=== PATIENT | male | born 1955 | race Caucasian/White ===

== ENCOUNTER 2021-04-24 13:14 | Emergency (ER) | payer OTHER, SELFPAY ==
[2021-04-24 14:21] VITALS: BP 147/76; PULSE 75; RESP 19; TEMP 36.7; O2SAT 94; BMI 26.4
--- NOTE | 2021-04-24 16:33 | CTR_ITS ---
PROCEDURE INFORMATION: Exam: CT Abdomen And Pelvis With Contrast Exam date and time: 04/24/2021 4:33 PM Age: 65 years old Clinical indication: Nausea and vomiting and other: Diarrhea; Abdominal pain; Generalized; Additional info: Llq abd pain TECHNIQUE: Imaging protocol: Computed tomography of the abdomen and pelvis with contrast. Radiation optimization: All CT scans at this facility use at least one of these dose optimization techniques: automated exposure control; mA and/or kV adjustment per patient size (includes targeted exams where dose is matched to clinical indication); or iterative reconstruction. Contrast material: VISI 320; Contrast volume: 95 ml; Contrast route: INTRAVENOUS (IV); COMPARISON: CR (CHEST, ) 04/24/2021 4:49 PM RADIATION DOSE METRICS: Total DLP (mGy-cm): 1621.14 FINDINGS: Lungs: There is calcified granuloma in the left lower lobe. There is some scarring and dependent atelectasis in the lingula and in the posterior lower lobes. Liver: There is no focal abnormality within the liver. Gallbladder and bile ducts: The gallbladder is normal. Pancreas: The pancreas is normal. Spleen: The spleen demonstrates punctate calcifications, consistent with remote granulomatous organism exposure. Adrenal glands: The adrenal glands are normal. Kidneys and ureters: The kidneys are normal. There is no evidence of hydronephrosis. There is no evidence of renal or ureteral calcifications. Stomach and bowel: There is no evidence of colitis/diverticulitis. There is no evidence of intestinal obstruction. There is no evidence of intestinal obstruction. There is moderate edema and thickening of the distal gastric antrum which may represent some nonspecific gastritis. There is mild fluid distention and thickening of proximal small bowel loops which may represent some nonspecific enteritis. Appendix: Not identified Intraperitoneal space: There is no evidence of free intraperitoneal fluid. Vasculature: The aorta demonstrates moderate atherosclerotic calcification. There is no evidence of an abdominal aortic aneurysm. There is moderate atherosclerotic narrowing of the mid abdominal aorta. Origin of the right common iliac artery is occluded. Right external iliac artery is patent and may be supplied via collaterals from the internal iliac. Lymph nodes: There is no evidence of lymphadenopathy. Urinary bladder: Unremarkable as visualized. Reproductive: Unremarkable as visualized. Bones/joints: There is old ununited fracture of left 10th rib; The lumbar spine demonstrates moderate degenerative changes at multiple levels. There is moderate lumbar scoliosis concave to the left. Soft tissues: Unremarkable. CT/CT abdomen pelvis w con* [id number] IMPRESSION: 1. Nonspecific gastroenteritis. 2. No evidence of diverticulitis. 3. 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 Radiation Dose CTDIVOL = (mGy): DLP = 1621.14 (mGy-cm)
--- NOTE | 2021-04-24 16:33 | XRR_ITS ---
PROCEDURE INFORMATION: Exam: XR Chest Exam date and time: 04/24/2021 4:33 PM Age: 65 years old Clinical indication: Shortness of breath; Sternal or substernal pain; Additional info: Reduced breath sounds TECHNIQUE: Imaging protocol: XR of the chest. Views: 1 view. COMPARISON: No relevant prior studies available. FINDINGS: Lungs: Visualized portions of the lungs are clear. Pleural spaces: Unremarkable. No pleural effusion. No pneumothorax. Heart/Mediastinum: Heart is within normal limits of size. Bones/joints: There are old healed fractures of the posterolateral left 5th and 8th ribs. There are degenerative changes in the thoracic spine. XR/XR chest 1V portable [id number] IMPRESSION: No acute infiltrate.
--- NOTE | 2021-04-24 16:37 | ECG_ITS ---
[facility] Test Date: 2021-04-24 Pat Name: Vikram Lawrence Department: Room: Gender: Male Counter Help: : 1955 Requested By: Pete Mast Order Number: [id number] Reina MD: Kiko Watkins M.D. Measurements Intervals [place] Rate: 81 P: 58 NV: 150 QRS: -2 QRSD: 85 T: 73 QT: 402 QTc: 467 Interpretive Statements SINUS RHYTHM No previous ECG available for comparison Electronically Signed On 04-24-2021 20:06:13 CDT by Kiko Watkins M.D. [id number]
[2021-04-24 16:49] LABS: Basophils # 0.1 10^3/uL (0.0-0.1); Basophils % 0.4 %; Eosinophils # 0.1 10^3/uL (0.0-0.8); Eosinophils % 0.7 %; Hematocrit 54.2 % (42.0-52.0); Hemoglobin 17.7 g/dL (11.7-16.6); Lymphocytes # 2.6 10^3/uL (0.8-4.8); Lymphocytes % 15.7 %; Mean Corpuscular HGB Conc 32.7 g/dL (30.0-36.0); Mean Corpuscular Hemoglobin 27.4 pg (28.0-34.0); Mean Corpuscular Volume 83.9 fL (80-94); Mean Platelet Volume 8.7 fL (7.4-10.4); Monocytes # 1.1 10^3/uL (0.2-0.9); Monocytes % 6.9 %; Neutrophils # 12.36 10^3/uL (1.8-7.7); Neutrophils % 75.9 %; Nucleated Red Blood Cells % 0 %; Platelet Count 515 10^3/cmm (130-400); Red Blood Count 6.46 10^6/uL (4.1-5.3); Red Cell Distribution Width 14.8 % (12.1-15.1); White Blood Count 16.3 10^3/uL (4.0-10.0)
[2021-04-24] MEDS: sodium chloride 0.9% 1,000 ML 999 ML IV (16:51)
[2021-04-24] MEDS: ondansetron 2 mg/ML SDV 2 mL 4 MG IVP (16:51)
[2021-04-24 17:08] VITALS: BP 153/84; PULSE 74; RESP 16; O2SAT 96
[2021-04-24 17:38] LABS: Lactic Sepsis W/Reflex 1.5 mmol/L (0.5-2.2)
[2021-04-24 18:05] VITALS: BP 157/75; PULSE 79; RESP 18; O2SAT 98
[2021-04-24 18:21] LABS: Alanine Aminotransferase 7 U/L (0-41); Albumin Level 4.3 g/dL (3.5-5.2); Alkaline Phosphatase 101 IU/L (40-130); Blood Urea Nitrogen 34 mg/dL (8-23); Calcium 9.5 mg/dL (8.5-10.5); Carbon Dioxide 19 mmol/L (22-29); Chloride 96 mmol/L (98-107); Globulin 3.3 g/dL (1.3-4.6); Glomerular Filtration Rate 85.2 mL/min (90-130); Glucose 108 mg/dL (65-115); Lipase 28 U/L (13-60); Osmolality Calculated 282 mOsm/kg (285-295); Sodium 132 mmol/L (136-145); Total Bilirubin 0.4 mg/dL (0.15-1.2); Total Protein 7.6 g/dL (6.6-8.7)
[2021-04-24 18:31] LABS: Aspartate Amino Transferase 11 U/L (0-40)
[2021-04-24] MEDS: iodixanol 320 mg/mL 100mL Btl IV (19:18)
[2021-04-24 19:43] VITALS: BP 152/71; PULSE 70; RESP 18; O2SAT 97
[2021-04-24 20:07] LABS: Add Urine Microscopic? NO; Charge for UA Resulting for Rev
[2021-04-24 20:10] LABS: Bilirubin Urine Neg (Negative); Blood Urine Neg (Negative); Glucose Urine UA Norm (Normal); Ketones Urine Negative (Negative); Leukocyte Esterase Urine Negative (Negative); Nitrate Urine Negative (Negative); Protein Urine Neg (Negative); Urine Appearance Clear (CLEAR); Urine Color Yellow (Yellow); Urobilinogen Urine 1 mg/dL (Negative); pH Urine 6.5 (5-7)
[2021-04-24 20:42] VITALS: BP 137/69; PULSE 71; RESP 16; O2SAT 95
--- NOTE | 2021-04-24 22:35 | W.ED.NAVMDI ---
HPI - Nausea/Vomiting/Diarrhea General: Chief complaint: Nausea/Vomiting/Diarrhea Stated complaint: WEAK, STOMACH PAINS 1 WK Time Seen by Provider: 04/24/21 16:32 History of Present Illness: HPI Narrative: The patient is a 65-year-old male who comes in he says he has not eaten or drink much for days. Heart rate 75 on arrival. Also complains of diffuse colicky abdominal pain but right now it is in the left lower quadrant. He has had a history of an appendix removed years ago. Denies eating any bad foods or fevers. He has also not had any vomiting in the ER. No recent antibiotic usage MD elicited complaint: nausea, vomiting, diarrhea and abdominal pain Onset (ago): day(s) (7) Description of diarrhea: watery Associated nausea: Yes Associated abdominal pain: Yes Location of pain: LLQ Radiation: does not radiate Pain consistency: intermittent Severity: mild Quality: cramping Relieving factors: none Associated symtoms: Reports nausea; Denies anxiety, change in vision, chest pain, dizziness, fatigue, headache(s) or palpitations Review of Systems General: Reports: 10 or more systems reviewed and unremarkable except in HPI and below Const: Denies: fatigue Eyes: Denies: change in vision, blurry vision or eye redness ENMT: Denies: throat pain, swelling of lips/tongue, ear or mastoid pain or nasal congestion Card: Denies: chest pain, palpitations, irregular heart rhythm, edema, dyspnea on exertion or orthopnea Resp: Denies: dyspnea, productive cough or non-productive cough GI: Reports: abdominal pain, nausea, vomiting and diarrhea : Denies: flank pain, urinary frequency or urinary urgency Musc: Denies: neck pain, back pain, extremity pain, joint pain, joint redness, limited range of motion or muscle weakness Skin/Breast: Denies: rash, pruritus, erythema, skin pain or skin tenderness Neuro: Denies: headache(s), numbness in extremities, weakness in extremities, sensory changes, difficulty walking, dizziness, confusion or Slurred speech present Psych: Denies: anxiety or depression Endo: Denies: polyuria All/Imm: Denies: urticaria, throat swelling or tongue swelling Physical Exam Const: COMMON NORMALS: no acute distress, average body habitus, patient oriented x3, no limitations, healthy appearing, alert and well nourished GENERAL APPEARANCE: cooperative, comfortable, well kempt and well developed ORIENTATION/CONSCIOUSNESS: Yes awake, Yes oriented to person, Yes oriented to place and Yes oriented to time HENMT: COMMON NORMALS: normocephalic, external ears normal and Normal external nose present HEAD & SCALP: normal to inspection and normocephalic NOSE: Normal external nose present EXTERNAL EAR: Yes external ears normal MOUTH: Normal oral and palatal mucosa present THROAT: posterior oropharynx normal Eye: COMMON NORMALS: Equal, round and reactive pupils present and EOMs intact bilaterally GENERAL EYE: appearance normal, both eyes and all related structures PUPIL: Yes Equal, round and reactive pupils present Neck/C-Spine: COMMON NORMALS: full ROM, no lymphadenopathy, no meningeal signs and no JVD GENERAL: Yes normal visual inspection Lymph: LYMPHATIC: no lymphadenopathy noted Chest: COMMONS NORMALS: normal inspection of the chest and normal palpation of entire chest wall Resp: COMMON NORMALS: normal respiratory effort, No retractions, No use of accessory muscles, clear to auscultation bilaterally and percussion normal EFFORT & INSPECTION: Yes able to speak in complete sentences AUSCULTATION: clear to auscultation bilaterally PERCUSSION: percussion normal Cardio: COMMON NORMALS: no JVD, regular rate, regular rhythm, S1 normal heart sound present, S2 normal heart sound present and Peripheral pulses 2+ throughout RATE: regular rate RHYTHM: regular rhythm HEART SOUNDS: S1 normal heart sound present and S2 normal heart sound present PERIPHERAL PULSES: Peripheral pulses 2+ throughout GI: COMMON NORMALS: Normal to inspection, nondistended, normoactive bowel sounds present, Soft to palpation, non-tender and no masses INSPECTION: Yes normal to inspection PALPATION: Yes Soft to palpation : COMMON NORMALS: Yes no CVA tenderness BLADDER/KIDNEY EXAM: Yes no CVA tenderness Back/Pelvis: COMMON NORMALS: no CVA tenderness, thoracic and lumbar spine normal to inspection, no thoracic nor lumbar tenderness and thoraco-lumbar ROM normal Extremity: COMMON NORMALS: normal to inspection, full ROM, capillary refill normal, no joint enlargement and no pedal edema GENERAL: Yes normal exam except as noted Neuro: COMMON NORMALS: patient oriented x3, CN's II-XII intact bilaterally, moves all extremities, no focal motor deficits, no sensory deficits noted and gait normal SENSORIUM/ORIENTATION: Yes alert, Yes oriented to person, Yes oriented to place and Yes oriented to time MENINGEAL SIGNS: Yes no meningeal signs Psych: COMMON NORMALS: mental status grossly normal, Normal thought process present, cooperative, normal affect and speech normal APPEARANCE: Yes well kempt ATTITUDE: Yes calm SPEECH: Yes normal speech THOUGHT PROCESS: Normal thought process present Skin: COMMON NORMALS: no rashes or lesions noted GENERAL SKIN EXAM: no rashes or lesions noted Course Vital Signs: Vital signs: Vital Signs Temperature 98.1 F 04/24/21 14:21 Pulse Rate 71 04/24/21 20:42 Respiratory Rate 16 04/24/21 20:42 Blood Pressure 137/69 04/24/21 20:42 Pulse Oximetry 95 04/24/21 20:42 MDM - Nausea/Vomiting/Diarrhea MDM Narrative: Medical decision making narrative: The patient came to the ER mildly dehydrated and was given a liter of fluids and Zofran for nausea which did help. He did not vomit in the ER. CT abdomen pelvis was negative for any acute pathology in the belly however it did incidentally show a clogged right common iliac artery. I placed a case management referral to help him get an appointment with a vascular surgeon to deal with this. He is asymptomatic of this. Fluids and Zofran did help his symptoms moderately and the CT was negative for any acute pathology. He was discharged home in stable condition and recommended he follow-up with his primary care physician Thursday for a checkup. ER with worsening symptoms at any time. White count 16 and slightly hemoconcentrated as well. He felt moderately improved after a liter of fluids and was tolerating p.o. Lab Data: Labs: Lab Results 04/24/21 04/24/21 04/24/21 Range/Units 16:40 16:40 16:40 WBC 16.3 H (4.0-10.0) 10^3/ uL RBC 6.46 H (4.1-5.3) 10^6/u L Hgb 17.7 H (11.7-16.6) g/dL Hct 54.2 H (42.0-52.0) % MCV 83.9 (80-94) fL MCH 27.4 L (28.0-34.0) pg MCHC 32.7 (30.0-36.0) g/dL RDW 14.8 (12.1-15.1) % Plt Count 515 H (130-400) 10^3/c mm MPV 8.7 (7.4-10.4) fL Neut % (Auto) 75.9 % Lymph % (Auto) 15.7 % [place] % (Auto) 6.9 % Eos % (Auto) 0.7 % Baso % (Auto) 0.4 % Neut # (Auto) 12.36 H (1.8-7.7) 10^3/u L Lymph # (Auto) 2.6 (0.8-4.8) 10^3/u L [place] # (Auto) 1.1 H (0.2-0.9) 10^3/u L Eos # (Auto) 0.1 (0.0-0.8) 10^3/u L Baso # (Auto) 0.1 (0.0-0.1) 10^3/u L Nucleated RBC % (a uto) 0 % Nucleated RBCs # 0.0 /100WBC Sodium 132 L (136-145) mmol/L Potassium 4.0 (3.5-5.1) mmol/L Chloride 96 L (98-107) mmol/L Carbon Dioxide 19 L (22-29) mmol/L Anion Gap 21.0 H (5-19) BUN 34 H (8-23) mg/dL Creatinine 0.9 (0.7-1.2) mg/dL GFR Calculation 85.2 L (90-130) mL/min Glucose 108 (65-115) mg/dL Calculated Osmolal ity 282 L (285-295) mOsm/k g Lactic Acid 1.5 (0.5-2.2) mmol/L Calcium 9.5 (8.5-10.5) mg/dL Total Bilirubin 0.4 (0.15-1.2) mg/dL AST 11 (0-40) U/L ALT 7 (0-41) U/L Alkaline Phosphata se 101 (40-130) IU/L Total Protein 7.6 (6.6-8.7) g/dL Albumin 4.3 (3.5-5.2) g/dL Globulin 3.3 (1.3-4.6) g/dL Lipase 28 (13-60) U/L Urine Color (Yellow) Urine Appearance (CLEAR) Urine pH (5-7) Ur Specific Gravit y (1.005-1.030) Urine Protein (Negative) Urine Glucose (UA) (Normal) Urine Ketones (Negative) Urine Blood (Negative) Urine Nitrate (Negative) Urine Bilirubin (Negative) Urine Urobilinogen (Negative) mg/dL Ur Leukocyte Kaylan ase (Negative) 04/24/21 Range/Units 19:50 WBC (4.0-10.0) 10^3/ uL RBC (4.1-5.3) 10^6/u L Hgb (11.7-16.6) g/dL Hct (42.0-52.0) % MCV (80-94) fL MCH (28.0-34.0) pg MCHC (30.0-36.0) g/dL RDW (12.1-15.1) % Plt Count (130-400) 10^3/c mm MPV (7.4-10.4) fL Neut % (Auto) % Lymph % (Auto) % [place] % (Auto) % Eos % (Auto) % Baso % (Auto) % Neut # (Auto) (1.8-7.7) 10^3/u L Lymph # (Auto) (0.8-4.8) 10^3/u L [place] # (Auto) (0.2-0.9) 10^3/u L Eos # (Auto) (0.0-0.8) 10^3/u L Baso # (Auto) (0.0-0.1) 10^3/u L Nucleated RBC % (a uto) % Nucleated RBCs # /100WBC Sodium (136-145) mmol/L Potassium (3.5-5.1) mmol/L Chloride (98-107) mmol/L Carbon Dioxide (22-29) mmol/L Anion Gap (5-19) BUN (8-23) mg/dL Creatinine (0.7-1.2) mg/dL GFR Calculation (90-130) mL/min Glucose (65-115) mg/dL Calculated Osmolal ity (285-295) mOsm/k g Lactic Acid (0.5-2.2) mmol/L Calcium (8.5-10.5) mg/dL Total Bilirubin (0.15-1.2) mg/dL AST (0-40) U/L ALT (0-41) U/L Alkaline Phosphata se (40-130) IU/L Total Protein (6.6-8.7) g/dL Albumin (3.5-5.2) g/dL Globulin (1.3-4.6) g/dL Lipase (13-60) U/L Urine Color Yellow (Yellow) Urine Appearance Clear (CLEAR) Urine pH 6.5 (5-7) Ur Specific Gravit y 1.010 (1.005-1.030) Urine Protein Neg (Negative) Urine Glucose (UA) Norm (Normal) Urine Ketones Negative (Negative) Urine Blood Neg (Negative) Urine Nitrate Negative (Negative) Urine Bilirubin Neg (Negative) Urine Urobilinogen 1 H (Negative) mg/dL Ur Leukocyte Kaylan ase Negative (Negative) Discharge Plan Discharge Patient Disposition: Home Clinical Impression: Gastroenteritis, Iliac artery occlusion, right Condition: Stable Prescriptions: New ondansetron 4 mg tablet,disintegrating 4 mg PO Q8H 4 Days Qty: 12 RF: 0 Discharge Orders: Discharge ED (Routine); Ordered 04/24/21 Ordered By: Pete Mast Referrals: Rodriguez Olmos [Primary Care Provider] - Discharge Diet: Advance as tolerated Discharge Activity: Resume usual activity Patient Instructions: Gastroenteritis (ED), Opioid Safety Activity Restrictions/Additional Instructions: 1. You are suffering from gastroenteritis please continue to drink lots of fluids and take the Zofran which should dissolve in your mouth to help you drink fluids. Return to the ER at anytime with worsening symptoms otherwise follow-up with your primary care physician in a few days to monitor improvement of your symptoms. 2. Your right common iliac your right common iliac artery is this was found incidentally and is no cause for immediate concern but must be followed up. I have placed a case management referral to help you get in with a vascular surgeon to discuss further. Return to the ER with any worsening symptoms in that leg such as weakness, cold extremity, bluish color, numbness or any other odd symptoms you may have. Otherwise follow-up with the vascular surgeon. They should be calling you soon to help you set up an appointment. 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
[2021-04-24 22:41] VITALS: BP 143/77; PULSE 77; RESP 18; O2SAT 99
--- NOTE | 2021-04-25 09:02 | PC.SOCIAL ---
Called Jennifer at [facility] today at 0900 regarding referral to vascular surgeon for clotted right common iliac artery. She retrieved information and will call patient with appointment.
--- NOTE | 2021-05-07 07:39 | DCPLANNER ---
Patient has a follow up appointment scheduled for Monday, June 07, 2021 at 9:[address] Jade at [facility]. Clinic will call patient with appointment information.
--- NOTE | 2021-06-12 07:45 | DCPLANNER ---
Patient had a follow up appointment scheduled for 06.07.21 with [facility] - patient did not attend appointment.
== END 2021-04-24 22:42 | disposition home or self-care (01) ==
PROVIDERS: Registered Nurse; Emergency Provider Family Medicine; PCP Internal Medicine
DX: K52.9 Noninfective gastroenteritis and colitis, unspecified (principal); I74.5 Embolism and thrombosis of iliac artery
CPT/HCPCS: 71045; 74177; 80053; 81003; 83605; 83690; 85025; 93005; 96361; 96374; 99284; J2405; J7030; Q9967

== ENCOUNTER 2022-12-09 12:57 | Emergency (ER) | payer OTHER, SELFPAY ==
[2022-12-09] VITALS (16 sets, daily range): BP systolic 145–200; BP diastolic 80–109; PULSE 73–91; RESP 15–27; TEMP 36.3; O2SAT 93–98; BMI 26.4
--- NOTE | 2022-12-09 13:52 | ED_ITS ---
Documented by User: [email or web address] Carl 12/10/22 07:09 HPI - General Adult General: Chief complaint: Extremity Problem,Nontraumatic Stated complaint: pain in legs Time Seen by Provider: 12/09/22 13:37 Source: patient Mode of arrival: ambulatory Limitations: no limitations History of Present Illness: Patient is a 67-year-old male who presents to ED today with 2 separate complaints. First of all he complains of diffuse mid abdominal pains over the past several weeks. He states this pain has been constant and has not seemed to let up. He rates it at a 6/10. He has not found any alleviating or worsening factors to his discomfort. He states it feels like I am being punched in my gut repetitively . Patient is not having any nausea, vomiting, or changes in bowel movements. He has no urinary complaints. He denies heavy alcohol or NSAID use. Pain does not seem to be affected by eating. Patient also has some complaints in regards to his bilateral lower extremities. Patient states they have been cool to the touch with some pallor for over a year now . Patient is an every day smoker. He states his legs sometimes feel numb . When asked if patient is a diabetic he responds yeah a little bit . He states he became concerned when he noticed a blood blister to his right great toe. Onset (ago): unknown (differing complaints with differing chronicities) Location: abdomen and lower extremity Relieving factors: none Exacerbating factors: none Associated symptoms: Deny chest pain, dyspnea, headache(s), malaise, nausea, palpitations, syncope or vomiting Treatments prior to arrival: none Review of Systems Const: Denies: fever(s), chills, body aches, fatigue or malaise Card: Denies: chest pain, palpitations, irregular heart rhythm, lightheadedness, syncope or dyspnea on exertion Resp: Denies: dyspnea, productive cough or pain on inspiration GI: Reports: abdominal pain; Denies: nausea, vomiting, heartburn, diarrhea or change in bowel habits Musc: Reports: extremity pain; Denies: neck pain, back pain, extremity swelling, joint pain or joint swelling Skin/Breast: Reports: other (blister to R great toe) Neuro: Reports: numbness in extremities; Denies: headache(s), weakness in extremities or sensory changes Physical Exam Const: COMMON NORMALS: no acute distress, patient oriented x3, no limitations, alert and well nourished GENERAL APPEARANCE: cooperative ORIENTATION/CONSCIOUSNESS: Yes awake, Yes oriented to person, Yes oriented to place and Yes oriented to time HENMT: COMMON NORMALS: normocephalic and atraumatic HEAD & SCALP: normal to inspection, normocephalic and atraumatic Resp: COMMON NORMALS: normal respiratory effort and clear to auscultation bilaterally AUSCULTATION: clear to auscultation bilaterally Cardio: COMMON NORMALS: regular rate and regular rhythm RATE: regular rate RHYTHM: regular rhythm GI: COMMON NORMALS: Soft to palpation and no masses AUSCULTATION: Yes normoactive bowel sounds PALPATION: Yes Soft to palpation, Yes Tenderness to palpation present (GI) (across mid abdomen; abdomen seems somewhat distended), No Guarding due to palpation present (GI) and No Rigid due to palpation : COMMON NORMALS: Yes no CVA tenderness BLADDER/KIDNEY EXAM: Yes no CVA tenderness Back/Pelvis: COMMON NORMALS: no CVA tenderness Extremity: COMMON NORMALS: full ROM, no joint enlargement, no calf tenderness and no pedal edema NARRATIVE EXTREMITY EXAM: patient has bilaterally very cool distal lower extremities that do have some mild pallor present; he has palpable and doppler DP/PT pulses bilaterally however; patient states feet have been cool for about a year now; he has the presence of a blood blister to the distal lateral aspect of R great toe that he is concerned with GENERAL: Yes normal exam except as noted Neuro: BRYON COMA SCALE: document GCS findings Bryon coma scale eye opening: Spontaneous [place] coma scale verbal response: Orientated [place] coma scale motor response: Obey commands Bryon coma scale total score: 15 COMMON NORMALS: patient oriented x3, moves all extremities, no focal motor deficits, no sensory deficits noted and gait normal SENSORIUM/ORIENTATION: Yes alert, Yes oriented to person, Yes oriented to place and Yes oriented to time Skin: NARRATIVE SKIN EXAM: see above for pertinent skin findings Course Vital Signs: Vital signs: Vital Signs Temperature 97.3 F L 12/09/22 13:00 Pulse Rate 78 12/09/22 19:25 Respiratory Rate 18 12/09/22 19:25 Blood Pressure 156/84 12/09/22 19:25 Pulse Oximetry 94 12/09/22 19:25 Oxygen Delivery Wy thod 12/09/22 18:41 MDM - General Adult Medical Decision Making Care was transferred to [facility], [facility] pending results of CT abdomen/pelvis ES Lab Data 12/09/22 14:35 12/09/22 14:35 Radiology Impressions Abdomen/Pelvis CT 12/09/22 13:52 IMPRESSION: 1. New infrarenal abdominal aortic aneurysm measuring 3 cm with findings suspicious for rupture of the infrarenal abdominal aorta. New crescentic hyperdensity surrounds the infrarenal abdominal aorta with disruption of the lumen in the left inferolateral aspect. Recommend emergent vascular surgery consultation. This can be further evaluated with either catheter angiogram or CT a of the abdomen aorta protocol as warranted clinically. 2. 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 THIS REPORT CONTAINS FINDINGS THAT MAY BE CRITICAL TO PATIENT CARE. The findings were verbally communicated via telephone conference with [facility] CERTIFIED INDUSTRIAL HYGIENIST at 5:11 PM PLANNING DIRECTOR on 12/09/2022. The findings were acknowledged and understood. Laboratory Results WBC 12.3 10^3/uL (4.0-10.0) H 12/09/22 14:35 RBC 4.96 10^6/uL (4.1-5.3) 12/09/22 14:35 Hgb 13.5 g/dL (11.7-16.6) 12/09/22 14:35 Hct 41.4 % (42.0-52.0) L 12/09/22 14:35 MCV 83.5 fl (80-94) 12/09/22 14:35 MCH 27.2 pg (28.0-34.0) L 12/09/22 14:35 MCHC 32.6 g/dL (30.0-36.0) 12/09/22 14:35 RDW 14.7 % (12.1-15.1) 12/09/22 14:35 Plt Count 630 10^3/cmm (130-400) H 12/09/22 14:35 MPV 8.4 fL (7.4-10.4) 12/09/22 14:35 Neut % (Auto) 73.4 % 12/09/22 14:35 Lymph % (Auto) 18.7 % 12/09/22 14:35 [place] % (Auto) 4.5 % 12/09/22 14:35 Eos % (Auto) 1.9 % 12/09/22 14:35 Baso % (Auto) 0.5 % 12/09/22 14:35 Neut # (Auto) 9.04 10^3/uL (1.8-7.7) H 12/09/22 14:35 Lymph # (Auto) 2.3 10^3/uL (0.8-4.8) 12/09/22 14:35 [place] # (Auto) 0.6 10^3/uL (0.2-0.9) 12/09/22 14:35 Eos # (Auto) 0.2 10^3/uL (0.0-0.8) 12/09/22 14:35 Baso # (Auto) 0.1 10^3/uL (0.0-0.1) 12/09/22 14:35 Nucleated RBC % (auto) 0 % 12/09/22 14:35 Nucleated RBCs # 0.0 /100WBC 12/09/22 14:35 PT 13.70 SECONDS (12.1-14.9) 12/09/22 14:35 INR 1.02 (0.8-1.2) 12/09/22 14:35 APTT 32.7 SECONDS (23.9-36.7) 12/09/22 14:35 Sodium 132 mmol/L (136-145) L 12/09/22 14:35 Potassium 3.5 mmol/L (3.5-5.1) 12/09/22 14:35 Chloride 94 mmol/L (98-107) L 12/09/22 14:35 Carbon Dioxide 28 mmol/L (22-29) 12/09/22 14:35 Anion Gap 13.5 (5-19) 12/09/22 14:35 BUN 9 mg/dL (8-23) 12/09/22 14:35 Creatinine 0.9 mg/dL (0.7-1.2) 12/09/22 14:35 GFR Calculation 84.7 mL/min (90-130) L 12/09/22 14:35 Glucose 124 mg/dL (65-115) H 12/09/22 14:35 Calculated Osmolality 274 mOsm/kg (285-295) L 12/09/22 14:35 Lactic Acid 2.2 mmol/L (0.5-2.2) 12/09/22 14:35 Lactic Acid (Sepsis) 1.1 mmol/L (0.5-2.2) 12/09/22 17:18 Calcium 9.8 mg/dL (8.5-10.5) 12/09/22 14:35 Total Bilirubin 0.2 mg/dL (0.15-1.2) 12/09/22 14:35 AST 7 U/L (0-40) 12/09/22 14:35 ALT 9 U/L (0-41) 12/09/22 14:35 Alkaline Phosphatase 102 U/L (40-130) 12/09/22 14:35 Total Protein 7.5 g/dL (6.6-8.7) 12/09/22 14:35 Albumin 3.7 g/dL (3.5-5.2) 12/09/22 14:35 Globulin 3.8 g/dL (1.3-4.6) 12/09/22 14:35 Lipase 64 U/L (13-60) H 12/09/22 14:35 Urine Color Yellow (Yellow) 12/09/22 15:20 Urine Appearance Clear (CLEAR) 12/09/22 15:20 Urine pH 6.5 (5-7) 12/09/22 15:20 Ur Specific [place] 1.015 (1.005-1.030) 12/09/22 15:20 Urine Protein Neg (Negative) 12/09/22 15:20 Urine Glucose (UA) Norm (Normal) 12/09/22 15:20 Urine Ketones Negative (Negative) 12/09/22 15:20 Urine Blood Neg (Negative) 12/09/22 15:20 Urine Nitrate Negative (Negative) 12/09/22 15:20 Urine Bilirubin Neg (Negative) 12/09/22 15:20 Urine Urobilinogen Neg mg/dL (Negative) 12/09/22 15:20 Ur Leukocyte Esterase Negative (Negative) 12/09/22 15:20 Blood Type A Positive 12/09/22 17:55 Rho(D) Type Positive 12/09/22 17:55 Antibody Screen Negative 12/09/22 17:55 Discharge Plan Discharge Patient Disposition: Transfer to ED Clinical Impression: Ruptured infrarenal abdominal aortic aneurysm (AAA) Condition: Stable Prescriptions: No Action No Known Home Medications Referrals: Rodriguez Olmos [Primary Care Provider] - Sign Out Sign Out Data: Patient Sign Out occurred on 12/09/22 at 17:19. Patient's care was discussed, and care was transferred from to Mejia Pardo MD. Coding Level of Care Code ED District Manager [employer] for Chg Fwd Documented by User: CARON Madison 12/09/22 18:20 HPI - General Adult General: Chief complaint: Extremity Problem,Nontraumatic Stated complaint: pain in legs Time Seen by Provider: 12/09/22 13:37 Physical Exam Neuro: BRYON COMA SCALE: document GCS findings [place] coma scale total score: 15 Course ED course: 1715- Dr. Hedrick, radiologist, called and advised CT showed concern for a ruptured infrarenal abdominal aorta. I discussed case with Dr. Pardo who agrees to accept care of pt. PT is transferred from vertical flow to ER bed. Vital Signs: Vital signs: Vital Signs Temperature 97.3 F L 12/09/22 13:00 Pulse Rate 78 12/09/22 19:25 Respiratory Rate 18 12/09/22 19:25 Blood Pressure 156/84 12/09/22 19:25 Pulse Oximetry 94 12/09/22 19:25 Oxygen Delivery Me thod 12/09/22 18:41 MDM - General Adult Lab Data 12/09/22 14:35 12/09/22 14:35 Radiology Impressions Abdomen/Pelvis CT 12/09/22 13:52 IMPRESSION: 1. New infrarenal abdominal aortic aneurysm measuring 3 cm with findings suspicious for rupture of the infrarenal abdominal aorta. New crescentic hyperdensity surrounds the infrarenal abdominal aorta with disruption of the lumen in the left inferolateral aspect. Recommend emergent vascular surgery consultation. This can be further evaluated with either catheter angiogram or CT a of the abdomen aorta protocol as warranted clinically. 2. 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 THIS REPORT CONTAINS FINDINGS THAT MAY BE CRITICAL TO PATIENT CARE. The findings were verbally communicated via telephone conference with Hyun Goodrich CERTIFIED INDUSTRIAL HYGIENIST at 5:11 PM PLANNING DIRECTOR on 12/09/2022. The findings were acknowledged and understood. Laboratory Results WBC 12.3 10^3/uL (4.0-10.0) H 12/09/22 14:35 RBC 4.96 10^6/uL (4.1-5.3) 12/09/22 14:35 Hgb 13.5 g/dL (11.7-16.6) 12/09/22 14:35 Hct 41.4 % (42.0-52.0) L 12/09/22 14:35 MCV 83.5 fl (80-94) 12/09/22 14:35 MCH 27.2 pg (28.0-34.0) L 12/09/22 14:35 MCHC 32.6 g/dL (30.0-36.0) 12/09/22 14:35 RDW 14.7 % (12.1-15.1) 12/09/22 14:35 Plt Count 630 10^3/cmm (130-400) H 12/09/22 14:35 MPV 8.4 fL (7.4-10.4) 12/09/22 14:35 Neut % (Auto) 73.4 % 12/09/22 14:35 Lymph % (Auto) 18.7 % 12/09/22 14:35 [place] % (Auto) 4.5 % 12/09/22 14:35 Eos % (Auto) 1.9 % 12/09/22 14:35 Baso % (Auto) 0.5 % 12/09/22 14:35 Neut # (Auto) 9.04 10^3/uL (1.8-7.7) H 12/09/22 14:35 Lymph # (Auto) 2.3 10^3/uL (0.8-4.8) 12/09/22 14:35 [place] # (Auto) 0.6 10^3/uL (0.2-0.9) 12/09/22 14:35 Eos # (Auto) 0.2 10^3/uL (0.0-0.8) 12/09/22 14:35 Baso # (Auto) 0.1 10^3/uL (0.0-0.1) 12/09/22 14:35 Nucleated RBC % (auto) 0 % 12/09/22 14:35 Nucleated RBCs # 0.0 /100WBC 12/09/22 14:35 PT 13.70 SECONDS (12.1-14.9) 12/09/22 14:35 INR 1.02 (0.8-1.2) 12/09/22 14:35 APTT 32.7 SECONDS (23.9-36.7) 12/09/22 14:35 Sodium 132 mmol/L (136-145) L 12/09/22 14:35 Potassium 3.5 mmol/L (3.5-5.1) 12/09/22 14:35 Chloride 94 mmol/L (98-107) L 12/09/22 14:35 Carbon Dioxide 28 mmol/L (22-29) 12/09/22 14:35 Anion Gap 13.5 (5-19) 12/09/22 14:35 BUN 9 mg/dL (8-23) 12/09/22 14:35 Creatinine 0.9 mg/dL (0.7-1.2) 12/09/22 14:35 GFR Calculation 84.7 mL/min (90-130) L 12/09/22 14:35 Glucose 124 mg/dL (65-115) H 12/09/22 14:35 Calculated Osmolality 274 mOsm/kg (285-295) L 12/09/22 14:35 Lactic Acid 2.2 mmol/L (0.5-2.2) 12/09/22 14:35 Lactic Acid (Sepsis) 1.1 mmol/L (0.5-2.2) 12/09/22 17:18 Calcium 9.8 mg/dL (8.5-10.5) 12/09/22 14:35 Total Bilirubin 0.2 mg/dL (0.15-1.2) 12/09/22 14:35 AST 7 U/L (0-40) 12/09/22 14:35 ALT 9 U/L (0-41) 12/09/22 14:35 Alkaline Phosphatase 102 U/L (40-130) 12/09/22 14:35 Total Protein 7.5 g/dL (6.6-8.7) 12/09/22 14:35 Albumin 3.7 g/dL (3.5-5.2) 12/09/22 14:35 Globulin 3.8 g/dL (1.3-4.6) 12/09/22 14:35 Lipase 64 U/L (13-60) H 12/09/22 14:35 Urine Color Yellow (Yellow) 12/09/22 15:20 Urine Appearance Clear (CLEAR) 12/09/22 15:20 Urine pH 6.5 (5-7) 12/09/22 15:20 Ur Specific [place] 1.015 (1.005-1.030) 12/09/22 15:20 Urine Protein Neg (Negative) 12/09/22 15:20 Urine Glucose (UA) Norm (Normal) 12/09/22 15:20 Urine Ketones Negative (Negative) 12/09/22 15:20 Urine Blood Neg (Negative) 12/09/22 15:20 Urine Nitrate Negative (Negative) 12/09/22 15:20 Urine Bilirubin Neg (Negative) 12/09/22 15:20 Urine Urobilinogen Neg mg/dL (Negative) 12/09/22 15:20 Ur Leukocyte Esterase Negative (Negative) 12/09/22 15:20 Blood Type A Positive 12/09/22 17:55 Rho(D) Type Positive 12/09/22 17:55 Antibody Screen Negative 12/09/22 17:55 Discharge Plan Discharge Patient Disposition: Transfer to ED Clinical Impression: Ruptured infrarenal abdominal aortic aneurysm (AAA) Condition: Stable Prescriptions: No Action No Known Home Medications Referrals: Rodriguez Oloms [Primary Care Provider] - Sign Out Sign Out Data: Patient Sign Out occurred on 12/09/22 at 17:19. Patient's care was discussed, and care was transferred from to Mejia Pardo MD. Coding Level of Care Code ED District Manager [employer] for Chg Fwd Documented by User: Mejia Pardo MD 12/22/22 01:04 HPI - General Adult General: Chief complaint: Extremity Problem,Nontraumatic Stated complaint: pain in legs Time Seen by Provider: 12/09/22 13:37 Physical Exam Neuro: BRYON COMA SCALE: document GCS findings [place] coma scale total score: 15 Course Vital Signs: Vital signs: Vital Signs Temperature 97.3 F L 12/09/22 13:00 Pulse Rate 78 12/09/22 19:25 Respiratory Rate 18 12/09/22 19:25 Blood Pressure 156/84 12/09/22 19:25 Pulse Oximetry 94 12/09/22 19:25 Oxygen Delivery Me thod 12/09/22 18:41 MDM - General Adult Medical Decision Making Care was transferred to WILNER Madison pending results of CT abdomen/pelvis ES Patient care discussed with WILNER Madison?C once she received CT results. I personally saw and evaluated the patient. I reperformed link portions of E/M. I agree with documentation. I reviewed her laboratory studies and imaging. Patient reports vascular surgery intervention. Esmolol and nicardipine ordered. We attempted transfer to multiple facilities however they would accept the patient as transfer even ER to ER due to bed availability and specialty availability. Patient started by Dr. Morris/Dr Ludwig at [facility] [[email or web address]] and transferred in guarded condition. The results of ED evaluation were discussed with the patient including plan for transfer due to requirement for level of care not available if discharged to prevent significant worsening/deterioration. Patient agreeable with plan. Lab Data 12/09/22 14:35 12/09/22 14:35 Radiology Impressions Abdomen/Pelvis CT 12/09/22 13:52 IMPRESSION: 1. New infrarenal abdominal aortic aneurysm measuring 3 cm with findings suspicious for rupture of the infrarenal abdominal aorta. New crescentic hyperdensity surrounds the infrarenal abdominal aorta with disruption of the lumen in the left inferolateral aspect. Recommend emergent vascular surgery consultation. This can be further evaluated with either catheter angiogram or CT a of the abdomen aorta protocol as warranted clinically. 2. 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 THIS REPORT CONTAINS FINDINGS THAT MAY BE CRITICAL TO PATIENT CARE. The findings were verbally communicated via telephone conference with Hyun Goodrich CERTIFIED INDUSTRIAL HYGIENIST at 5:11 PM PLANNING DIRECTOR on 12/09/2022. The findings were acknowledged and understood. Laboratory Results WBC 12.3 10^3/uL (4.0-10.0) H 12/09/22 14:35 RBC 4.96 10^6/uL (4.1-5.3) 12/09/22 14:35 Hgb 13.5 g/dL (11.7-16.6) 12/09/22 14:35 Hct 41.4 % (42.0-52.0) L 12/09/22 14:35 MCV 83.5 fl (80-94) 12/09/22 14:35 MCH 27.2 pg (28.0-34.0) L 12/09/22 14:35 MCHC 32.6 g/dL (30.0-36.0) 12/09/22 14:35 RDW 14.7 % (12.1-15.1) 12/09/22 14:35 Plt Count 630 10^3/cmm (130-400) H 12/09/22 14:35 MPV 8.4 fL (7.4-10.4) 12/09/22 14:35 Neut % (Auto) 73.4 % 12/09/22 14:35 Lymph % (Auto) 18.7 % 12/09/22 14:35 [place] % (Auto) 4.5 % 12/09/22 14:35 Eos % (Auto) 1.9 % 12/09/22 14:35 Baso % (Auto) 0.5 % 12/09/22 14:35 Neut # (Auto) 9.04 10^3/uL (1.8-7.7) H 12/09/22 14:35 Lymph # (Auto) 2.3 10^3/uL (0.8-4.8) 12/09/22 14:35 [place] # (Auto) 0.6 10^3/uL (0.2-0.9) 12/09/22 14:35 Eos # (Auto) 0.2 10^3/uL (0.0-0.8) 12/09/22 14:35 Baso # (Auto) 0.1 10^3/uL (0.0-0.1) 12/09/22 14:35 Nucleated RBC % (auto) 0 % 12/09/22 14:35 Nucleated RBCs # 0.0 /100WBC 12/09/22 14:35 PT 13.70 SECONDS (12.1-14.9) 12/09/22 14:35 INR 1.02 (0.8-1.2) 12/09/22 14:35 APTT 32.7 SECONDS (23.9-36.7) 12/09/22 14:35 Sodium 132 mmol/L (136-145) L 12/09/22 14:35 Potassium 3.5 mmol/L (3.5-5.1) 12/09/22 14:35 Chloride 94 mmol/L (98-107) L 12/09/22 14:35 Carbon Dioxide 28 mmol/L (22-29) 12/09/22 14:35 Anion Gap 13.5 (5-19) 12/09/22 14:35 BUN 9 mg/dL (8-23) 12/09/22 14:35 Creatinine 0.9 mg/dL (0.7-1.2) 12/09/22 14:35 GFR Calculation 84.7 mL/min (90-130) L 12/09/22 14:35 Glucose 124 mg/dL (65-115) H 12/09/22 14:35 Calculated Osmolality 274 mOsm/kg (285-295) L 12/09/22 14:35 Lactic Acid 2.2 mmol/L (0.5-2.2) 12/09/22 14:35 Lactic Acid (Sepsis) 1.1 mmol/L (0.5-2.2) 12/09/22 17:18 Calcium 9.8 mg/dL (8.5-10.5) 12/09/22 14:35 Total Bilirubin 0.2 mg/dL (0.15-1.2) 12/09/22 14:35 AST 7 U/L (0-40) 12/09/22 14:35 ALT 9 U/L (0-41) 12/09/22 14:35 Alkaline Phosphatase 102 U/L (40-130) 12/09/22 14:35 Total Protein 7.5 g/dL (6.6-8.7) 12/09/22 14:35 Albumin 3.7 g/dL (3.5-5.2) 12/09/22 14:35 Globulin 3.8 g/dL (1.3-4.6) 12/09/22 14:35 Lipase 64 U/L (13-60) H 12/09/22 14:35 Urine Color Yellow (Yellow) 12/09/22 15:20 Urine Appearance Clear (CLEAR) 12/09/22 15:20 Urine pH 6.5 (5-7) 12/09/22 15:20 Ur Specific [place] 1.015 (1.005-1.030) 12/09/22 15:20 Urine Protein Neg (Negative) 12/09/22 15:20 Urine Glucose (UA) Norm (Normal) 12/09/22 15:20 Urine Ketones Negative (Negative) 12/09/22 15:20 Urine Blood Neg (Negative) 12/09/22 15:20 Urine Nitrate Negative (Negative) 12/09/22 15:20 Urine Bilirubin Neg (Negative) 12/09/22 15:20 Urine Urobilinogen Neg mg/dL (Negative) 12/09/22 15:20 Ur Leukocyte Esterase Negative (Negative) 12/09/22 15:20 Blood Type A Positive 12/09/22 17:55 Rho(D) Type Positive 12/09/22 17:55 Antibody Screen Negative 12/09/22 17:55 Critical Care Time Critical Care Time: Critical Care Time: Yes Total Critical Care Time: 75 Attestation: Due to a high probability of clinically significant, possibly life threatening deterioration, the patient required my highest level of attention and preparedness to intervene emergently and I personally spent this critical care time directly and personally managing the patient. This critical care time included obtaining a history; examining the patient; pulse oximetry; ordering and review of laboratory and imaging studies; arranging urgent treatment with development of a management plan; evaluation of patient's response to treatment; frequent reassessment; and, discussions with other providers as applicable. It was exclusive of separately billable procedures. Primary system involved is vascular. Discharge Plan Discharge Patient Disposition: Transfer to ED Clinical Impression: Ruptured infrarenal abdominal aortic aneurysm (AAA) Condition: Stable Prescriptions: No Action No Known Home Medications Referrals: Rodriguez Olmos [Primary Care Provider] - Sign Out Sign Out Data: Patient Sign Out occurred on 12/09/22 at 17:19. Patient's care was discussed, and care was transferred from to Mejia Pardo MD. Coding Level of Care Code ED District Manager [employer] Service for [place]
--- NOTE | 2022-12-09 13:52 | CTR_ITS ---
PROCEDURE INFORMATION: Exam: CT Abdomen And Pelvis With Contrast Exam date and time: 12/09/2022 4:12 PM Age: 67 years old Clinical indication: Abdominal pain; Prior surgery; Surgery type: Appy; Patient HX: Generalized abd pain. PT states he feels like someone is punching him in the gut. Vomited after contrast injection TECHNIQUE: Imaging protocol: Computed tomography of the abdomen and pelvis with contrast. Radiation optimization: All CT scans at this facility use at least one of these dose optimization techniques: automated exposure control; mA and/or kV adjustment per patient size (includes targeted exams where dose is matched to clinical indication); or iterative reconstruction. Contrast material: OMNI 350; Contrast volume: 95 ml; Contrast route: INTRAVENOUS (IV); Other protocol: This patient has received 0 known CTs and 0 known cardiac nuclear medicine studies in the 12 months prior to the current study. COMPARISON: CT abdomen pelvis w con* [id number] 04/24/2021 7:09 PM RADIATION DOSE METRICS: Total DLP (mGy-cm): 718.83 FINDINGS: Lungs: Left basilar calcified granuloma and bibasilar atelectasis. Liver: Normal. No mass. Gallbladder and bile ducts: Normal. No calcified stones. No ductal dilation. Pancreas: Normal. No ductal dilation. Spleen: Granuloma in the spleen. Adrenal glands: Mildly thickened adrenal glands on both sides unchanged, likely adenomatous hyperplasia. Lymph node anterior to the IVC with calcifications measuring 1.1 cm short axis likely granulomatous node, unchanged. Kidneys and ureters: Normal. No hydronephrosis. Stomach and bowel: Scattered noninflamed colonic diverticuli. Appendix: Appendix not visualized consistent with history of appendectomy. Intraperitoneal space: See Vasculature finding. Vasculature: The abdominal aorta has moderate atherosclerotic changes with new infrarenal abdominal aortic aneurysmal dilatation 3 cm. There is ill-defined high density now seen surrounding the aorta with apparent discontinuity of the lumen on the left posterolateral aspect for example on series 5, image 35 this is highly suspicious for aortic rupture. No free spillage of contrast into the peritoneum. The right common iliac artery is chronically occluded with reconstitution at the level of the iliac bifurcation likely from collateral flow. Perihilar small lymph nodes in the retroperitoneum adjacent to the aorta are similar and not pathologically enlarged by size criteria. Lymph nodes: See Vasculature finding. Urinary bladder: Mild bladder wall thickening. Reproductive: Mildly prominent prostate gland. Bones/joints: Old inferior left-sided rib fracture, unchanged. Soft tissues: Unremarkable. CT/CT abdomen pelvis w con* [id number] IMPRESSION: 1. New infrarenal abdominal aortic aneurysm measuring 3 cm with findings suspicious for rupture of the infrarenal abdominal aorta. New crescentic hyperdensity surrounds the infrarenal abdominal aorta with disruption of the lumen in the left inferolateral aspect. Recommend emergent vascular surgery consultation. This can be further evaluated with either catheter angiogram or CT a of the abdomen aorta protocol as warranted clinically. 2. 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 THIS REPORT CONTAINS FINDINGS THAT MAY BE CRITICAL TO PATIENT CARE. The findings were verbally communicated via telephone conference with Hyun Goodrich NP at 5:11 PM RECONCILIATION ANALYST on 12/09/2022. The findings were acknowledged and understood.
--- NOTE | 2022-12-09 14:26 | DCPLANNER ---
Addendum entered by June Cortez 12/17/22 14:07: Patient was transferred out to another facility. Original Note: administrative office manager had message to schedule a follow up appointment for patient with cardiology. administrative office manager sent patients information to the front office staff at [facility]. Patients information will be printed and reviewed. Clinic will call patient with appointment information.
--- NOTE | 2022-12-09 14:29 | DCPLANNER ---
Addendum entered by June Cortez 12/11/22 14:52: Patient was transferred to another facility. Original Note: business manager had message to schedule a follow up appointment for patient with podiatry. business manager sent patients information to the front office staff at podiatry. Patients information will be printed and reviewed. Clinic will call patient with appointment information.
[2022-12-09 14:56] LABS: Basophils # 0.1 10^3/uL (0.0-0.1); Basophils % 0.5 %; Eosinophils # 0.2 10^3/uL (0.0-0.8); Eosinophils % 1.9 %; Hematocrit 41.4 % (42.0-52.0); Hemoglobin 13.5 g/dL (11.7-16.6); Lymphocytes # 2.3 10^3/uL (0.8-4.8); Lymphocytes % 18.7 %; Mean Corpuscular HGB Conc 32.6 g/dL (30.0-36.0); Mean Corpuscular Hemoglobin 27.2 pg (28.0-34.0); Mean Corpuscular Volume 83.5 fl (80-94); Mean Platelet Volume 8.4 fL (7.4-10.4); Monocytes # 0.6 10^3/uL (0.2-0.9); Monocytes % 4.5 %; Neutrophils # 9.04 10^3/uL (1.8-7.7); Neutrophils % 73.4 %; Nucleated Red Blood Cells % 0 %; Platelet Count 630 10^3/cmm (130-400); Red Blood Count 4.96 10^6/uL (4.1-5.3); Red Cell Distribution Width 14.7 % (12.1-15.1); White Blood Count 12.3 10^3/uL (4.0-10.0)
[2022-12-09 15:22] LABS: Alanine Aminotransferase 9 U/L (0-41); Albumin Level 3.7 g/dL (3.5-5.2); Alkaline Phosphatase 102 U/L (40-130); Anion Gap 13.5 (5-19); Aspartate Amino Transferase 7 U/L (0-40); Blood Urea Nitrogen 9 mg/dL (8-23); Calcium 9.8 mg/dL (8.5-10.5); Carbon Dioxide 28 mmol/L (22-29); Chloride 94 mmol/L (98-107); Globulin 3.8 g/dL (1.3-4.6); Glomerular Filtration Rate 84.7 mL/min (90-130); Glucose 124 mg/dL (65-115); Lipase 64 U/L (13-60); Osmolality Calculated 274 mOsm/kg (285-295); Potassium 3.5 mmol/L (3.5-5.1); Sodium 132 mmol/L (136-145); Total Bilirubin 0.2 mg/dL (0.15-1.2); Total Protein 7.5 g/dL (6.6-8.7)
[2022-12-09 15:23] LABS: Lactic Sepsis W/Reflex 2.2 mmol/L (0.5-2.2)
[2022-12-09 15:34] LABS: Add Urine Microscopic? NO; Charge for UA Resulting for Rev
[2022-12-09 15:51] LABS: Bilirubin Urine Neg (Negative); Blood Urine Neg (Negative); Glucose Urine UA Norm (Normal); Ketones Urine Negative (Negative); Leukocyte Esterase Urine Negative (Negative); Nitrate Urine Negative (Negative); Protein Urine Neg (Negative); Specific Gravity, Urine 1.015 (1.005-1.030); Urine Appearance Clear (CLEAR); Urine Color Yellow (Yellow); Urobilinogen Urine Neg (Negative); pH Urine 6.5 (5-7)
[2022-12-09] MEDS: iohexol 350 mg/mL 500 mL Btl (per mL) IV (16:32)
[2022-12-09 16:39] LABS: Reflex Lactate Order REFLEX LACTIC ORDERD
--- NOTE | 2022-12-09 17:21 | PC.NURSE ---
after CT results, pt taken from vertical flow to room 10. pt connected to VS monitor and property assessment monitor. informed pt of NPO status. Dr. Pardo to bedside to update pt with plan of care. pt awake and alert, oriented to person, place, and time. pt c/o 5-6/10 stomach pain. lung sounds clear bilat. skin pink/warm/dry. speech clear. answering questions appropriately.
--- NOTE | 2022-12-09 17:27 | PC.NURSE ---
pt pulses palpable x4 extremities. RNs at bedside to attempt placement of second IV
[2022-12-09 17:58] LABS: Lactic Acid level (Lactate) 1.1 mmol/L (0.5-2.2)
[2022-12-09] MEDS: esmolol drip 2,500 MG/250 ML PREMIX 27.22 MG IV (18:05)
[2022-12-09 18:08] LABS: INR 1.02 (0.8-1.2)
[2022-12-09 18:09] LABS: Partial Thromboplastin Time 32.7 SECONDS (23.9-36.7)
--- NOTE | 2022-12-09 18:13 | PC.NURSE ---
Report called to Jacqueline, charge nurse at [facility]
--- NOTE | 2022-12-09 18:41 | PC.NURSE ---
per receiving facility, physician requesting pt blood pressure to be under 160 systolic
== END 2022-12-09 19:41 ==
PROVIDERS: Physician Assistant; Emergency Provider Emergency Medicine; PCP Internal Medicine
DX: I71.33 Infrarenal abdominal aortic aneurysm, ruptured (principal)
CPT/HCPCS: 36415; 74177; 80053; 81003; 83605; 83690; 85025; 85610; 85730; 86850; 86900; 96365; 99285; J3490; Q9967

== ENCOUNTER 2023-11-28 17:29 | Emergency (ER) | payer OTHER, SELFPAY ==
[2023-11-28 17:34] VITALS: BMI 26.4
--- NOTE | 2023-11-28 17:38 | ECG_ITS ---
[facility] Test Date: 2023-11-28 Pat Name: Vikram Lawrence Department: Room: Gender: Male Maintenance Coordinator: : 1955 Requested By: Marvin Grover Order Number: [id number] Reina MD: Kiko Watkins M.D. Measurements Intervals [place] Rate: 99 P: 68 LA: 149 QRS: -53 QRSD: 97 T: 72 QT: 360 QTc: 463 Interpretive Statements SINUS RHYTHM LEFT ANTERIOR FASCICULAR BLOCK [QRS AXIS <= -45, QR IN I, RS IN II] POSSIBLE LATERAL MYOCARDIAL INFARCTION , OF INDETERMINATE AGE [30 ms Q WAVE IN I/aVL/V5/V6] INTERPRETATION BASED ON A DEFAULT AGE OF 40 YEARS Compared to ECG 04/24/2021 16:46:43 Left anterior fascicular block now present Myocardial infarct finding now present Electronically Signed On 11-28-2023 21:58:19 HEAD OF HUMAN RESOURCES by Kiko Watkins M.D. [id number]
--- NOTE | 2023-11-28 17:38 | XRR_ITS ---
PROCEDURE INFORMATION: Exam: XR Chest Exam date and time: 11/28/2023 6:10 PM Age: 68 years old Clinical indication: Angina pectoris; Prior surgery; Surgery date: 6+ months; Patient HX: RT chest pain x 5 days; Cough; Smoker; HX aortic patch x 1 yr ago TECHNIQUE: Imaging protocol: Radiologic exam of the chest. Views: 1 view. COMPARISON: CR (CHEST, ) 04/24/2021 4:49 PM FINDINGS: Lungs: There is chronic lung change. No acute pneumonia or edema. Pleural spaces: Unremarkable. No pleural effusion. No pneumothorax. Heart/Mediastinum: Unremarkable. No cardiomegaly. Bones/joints: Unremarkable. XR/XR chest 1V portable [id number] IMPRESSION: There are no acute concerning abnormalities. If there is desire for further evaluation, a CT scan could be performed.
[2023-11-28 18:55] LABS: Basophils # 0.1 10^3/uL (0.0-0.1); Basophils % 0.7 %; Eosinophils # 0.4 10^3/uL (0.0-0.8); Eosinophils % 2.7 %; Hematocrit 47.6 % (37-53); Lymphocytes # 2.6 10^3/uL (0.8-4.8); Lymphocytes % 17.3 %; Mean Corpuscular HGB Conc 33.4 g/dL (30-55); Mean Corpuscular Hemoglobin 28.8 pg (27-33); Mean Corpuscular Volume 86.2 fl (82-101); Mean Platelet Volume 8.5 fL (7.4-10.4); Monocytes # 0.8 10^3/uL (0.2-0.9); Monocytes % 5.3 %; Neutrophils # 11.02 10^3/uL (1.8-7.7); Neutrophils % 73.6 %; Nucleated Red Blood Cells % 0 %; Platelet Count 383 10^3/cmm (157-399); Red Blood Count 5.52 10^6/uL (3.85-5.65); Red Cell Distribution Width 14.7 % (12.1-15.1); White Blood Count 14.97 10^3/uL (3.29-11.43)
[2023-11-28 19:12] LABS: Troponin(5th) Baseline 30 ng/L (0-15)
[2023-11-28 19:15] LABS: Alanine Aminotransferase 8 U/L (0-41); Albumin Level 4.1 g/dL (3.5-5.2); Alkaline Phosphatase 95 U/L (40-130); Anion Gap 17.5 (5-19); Aspartate Amino Transferase 11 U/L (0-40); Blood Urea Nitrogen 14 mg/dL (8-23); Calcium 10.3 mg/dL (8.5-10.5); Carbon Dioxide 26 mmol/L (22-29); Chloride 98 mmol/L (98-107); Globulin 4.2 g/dL (1.3-4.6); Glucose 82 mg/dL (65-115); Osmolality Calculated 286 mOsm/kg (285-295); Potassium 3.5 mmol/L (3.5-5.1); Sodium 138 mmol/L (136-145); Total Bilirubin 0.5 mg/dL (0.15-1.2); Total Protein 8.3 g/dL (6.6-8.7)
--- NOTE | 2023-11-28 19:21 | ECG_ITS ---
[facility] Test Date: 2023-11-28 Pat Name: Vikram Lawrence Department: Room: Gender: Male Site Inspector: : 1955 Requested By: Marvin Grover Order Number: [id number] Reading MD: Kiko Watkins M.D. Measurements Intervals [place] Rate: 94 P: 37 NM: 138 QRS: -38 QRSD: 98 T: 57 QT: 385 QTc: 482 Interpretive Statements SINUS RHYTHM WITH OCCASIONAL SUPRAVENTRICULAR PREMATURE COMPLEXES LEFT AXIS DEVIATION [QRS AXIS < -30] POSSIBLE LATERAL MYOCARDIAL INFARCTION , OF INDETERMINATE AGE [30 ms Q WAVE IN I/aVL/V5/V6] Compared to ECG 11/28/2023 17:38:31 Left-axis deviation now present Left anterior fascicular block no longer present Myocardial infarct finding still present Electronically Signed On 11-28-2023 22:02:37 THERAPY SITE COORDINATOR by Kiko Watkins M.D. [id number]
[2023-11-28 19:35] VITALS: BP 154/81; PULSE 87; O2SAT 91
--- NOTE | 2023-11-28 20:42 | W.ED.FALL ---
HPI - Fall General: Chief Complaint: Fall Stated Complaint: chest pains Time Seen by Provider: 11/28/23 19:02 History of Present Illness: 68-year-old male gentleman who states that he fell on Thursday striking his right shoulder. He presents with right-sided chest discomfort, cough, some sputum production. He is wheezing. He states that it really hurts his right side of the chest to cough. He tries not to. Associated symptoms-after fall: Reports chest pain (With cough); Denies abdominal pain or neck pain Review of Systems Const: Denies: fever(s) ENMT: Denies: throat pain Card: Reports: chest pain (With cough) Resp: Reports: dyspnea and productive cough GI: Denies: abdominal pain, nausea or vomiting Musc: Denies: neck pain or back pain Skin/Breast: Denies: rash Physical Exam Const: COMMON NORMALS: no acute distress GENERAL APPEARANCE: cooperative; not ill appearing and not frail appearing HENMT: COMMON NORMALS: normocephalic, atraumatic and Normal external nose present HEAD & SCALP: normocephalic and atraumatic FACE & SINUS: normal facial exam and face symmetric NOSE: Normal external nose present Eye: COMMON NORMALS: Equal, round and reactive pupils present and EOMs intact bilaterally PUPIL: Yes Equal, round and reactive pupils present Neck/C-Spine: GENERAL: Yes trachea midline Chest: CHEST: Yes Symmetrical chest wall rise Resp: COMMON NORMALS: normal respiratory effort AUSCULTATION: rhonchi and wheezes Cardio: COMMON NORMALS: regular rate and regular rhythm RATE: regular rate RHYTHM: regular rhythm GI: COMMON NORMALS: Normal to inspection, nondistended, normoactive bowel sounds present, Soft to palpation and non-tender PALPATION: Yes Soft to palpation Extremity: COMMON NORMALS: normal to inspection and no pedal edema Neuro: BRYON COMA SCALE: document GCS findings [place] coma scale eye opening: Spontaneous Bryon coma scale verbal response: Orientated [place] coma scale motor response: Obey commands Bryon coma scale total score: 15 Psych: COMMON NORMALS: mental status grossly normal Course Vital Signs: Vital signs: Vital Signs Pulse Rate 82 11/28/23 21:30 Respiratory Rate 18 11/28/23 21:30 Blood Pressure 159/91 11/28/23 21:30 Pulse Oximetry 90 11/28/23 21:30 Oxygen Delivery Me thod Room Air 11/28/23 21:28 MDM - Fall Medical Decision Making 68-year-old male with reproducible right-sided chest pain after a fall. He has a cough. He is wheezing on exam. His chest x-ray is normal. His vitals are stable. He is afebrile. His white blood cell count is 15 however. BMP is normal. Liver enzymes are normal. Baseline troponin is 30. This is noncardiac chest pain. He has no acute ST changes on EKG. He likely has COPD at baseline. He will be treated with steroids, antibiotics, and inhaler, and pain medication. To return for worsening symptoms. Follow-up as an outpatient. Lab Data 11/28/23 18:50 11/28/23 18:50 Radiology Impressions Chest X-Ray 11/28/23 17:38 IMPRESSION: There are no acute concerning abnormalities. If there is desire for further evaluation, a CT scan could be performed. Laboratory Results WBC 14.97 10^3/uL (3.29-11.43) H 11/28/23 18:50 RBC 5.52 10^6/uL (3.85-5.65) 11/28/23 18:50 Hgb 15.90 g/dL (11.27-16.99) 11/28/23 18:50 Hct 47.6 % (37-53) 11/28/23 18:50 MCV 86.2 fl (82-101) 11/28/23 18:50 MCH 28.8 pg (27-33) 11/28/23 18:50 MCHC 33.4 g/dL (30-55) 11/28/23 18:50 RDW 14.7 % (12.1-15.1) 11/28/23 18:50 Plt Count 383 10^3/cmm (157-399) 11/28/23 18:50 MPV 8.5 fL (7.4-10.4) 11/28/23 18:50 Neut % (Auto) 73.6 % 11/28/23 18:50 Lymph % (Auto) 17.3 % 11/28/23 18:50 [place] % (Auto) 5.3 % 11/28/23 18:50 Eos % (Auto) 2.7 % 11/28/23 18:50 Baso % (Auto) 0.7 % 11/28/23 18:50 Neut # (Auto) 11.02 10^3/uL (1.8-7.7) H 11/28/23 18:50 Lymph # (Auto) 2.6 10^3/uL (0.8-4.8) 11/28/23 18:50 [place]rick # (Auto) 0.8 10^3/uL (0.2-0.9) 11/28/23 18:50 Eos # (Auto) 0.4 10^3/uL (0.0-0.8) 11/28/23 18:50 Baso # (Auto) 0.1 10^3/uL (0.0-0.1) 11/28/23 18:50 Nucleated RBC % (auto) 0 % 11/28/23 18:50 Nucleated RBCs # 0.0 /100WBC 11/28/23 18:50 Sodium 138 mmol/L (136-145) 11/28/23 18:50 Potassium 3.5 mmol/L (3.5-5.1) 11/28/23 18:50 Chloride 98 mmol/L (98-107) 11/28/23 18:50 Carbon Dioxide 26 mmol/L (22-29) 11/28/23 18:50 Anion Gap 17.5 (5-19) 11/28/23 18:50 BUN 14 mg/dL (8-23) 11/28/23 18:50 Creatinine 1.1 mg/dL (0.7-1.2) 11/28/23 18:50 GFR Calculation 67.0 mL/min (90-130) L 11/28/23 18:50 Glucose 82 mg/dL (65-115) 11/28/23 18:50 Calculated Osmolality 286 mOsm/kg (285-295) 11/28/23 18:50 Calcium 10.3 mg/dL (8.5-10.5) 11/28/23 18:50 Total Bilirubin 0.5 mg/dL (0.15-1.2) 11/28/23 18:50 AST 11 U/L (0-40) 11/28/23 18:50 ALT 8 U/L (0-41) 11/28/23 18:50 Alkaline Phosphatase 95 U/L (40-130) 11/28/23 18:50 Troponin T Baseline 30 ng/L (0-15) H 11/28/23 18:50 Troponin T 120 Minute 27.68 ng/L (0-15) H 11/28/23 21:02 Delta Troponin T -2.32 ABS# (0-10) L 11/28/23 21:02 Total Protein 8.3 g/dL (6.6-8.7) 11/28/23 18:50 Albumin 4.1 g/dL (3.5-5.2) 11/28/23 18:50 Globulin 4.2 g/dL (1.3-4.6) 11/28/23 18:50 All radiology interpretation(s) finalized by discharge Discharge Plan Discharge Patient Disposition: Home Clinical Impression: Contusion of chest wall, Bronchitis Condition: Stable Prescriptions: New hydrocodone-acetaminophen 5-325 mg tablet 1 tab PO Q8H PRN (Reason: pain) Qty: 7 0RF Medrol (Cam) 4 mg tablets,dose pack See Rx Instructions .ROUTE .COMPLEX Qty: 21 0RF Rx Instructions: orally per package directions albuterol sulfate 90 mcg/actuation HFA aerosol inhaler 2 inh INHALATION Q4H PRN (Reason: shortness of breath or wheezing) Qty: 6.7 1RF doxycycline hyclate 100 mg tablet 100 mg PO BID 7 Days Qty: 14 0RF Discharge Orders: Discharge ED (Routine); Ordered 11/28/23 Ordered By: Pedro Nieto Referrals: Susan Sullivan DO [Primary Care Provider] - 1-3 days Patient Instructions: Acute Bronchitis (ED), Pulmonary Contusion (ED), Opioid Safety, Pain Management Activity Restrictions/Additional Instructions: Medication as directed. Use the inhaler every 4 hours while awake for the first 48 hours, then as needed following. Follow-up with your doctor next week. Return for worsening shortness of breath or pain despite treatment or other concerning symptoms. 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
[2023-11-28] MEDS: methylPREDNISolone sod succ 125 mg/2 mL INJ IVP (21:11)
[2023-11-28 21:12] VITALS: RESP 18
[2023-11-28] MEDS: doxycycline 100 mg Tablet PO (21:12)
[2023-11-28] MEDS: ondansetron 2 mg/ML SDV 2 mL 4 MG IVP (21:12)
[2023-11-28] MEDS: morphine 4 mg/mL SDV 1 mL IVP (21:12)
[2023-11-28] MEDS: ipratropium-albuterol 3 mL Neb INHALATION (21:14)
[2023-11-28 21:16] VITALS: PULSE 83; RESP 16; O2SAT 92
[2023-11-28 21:22] VITALS: PULSE 85
[2023-11-28 21:28] VITALS: BP 159/91; PULSE 87; RESP 18; O2SAT 90
[2023-11-28 21:29] LABS: Troponin 5 2HR 27.68 ng/L (0-15)
[2023-11-28 21:30] VITALS: BP 159/91; PULSE 82; RESP 18; O2SAT 90
[2023-11-28 21:31] LABS: Troponin 5 2HR Delta -2.32 ABS# (0-10)
== END 2023-11-28 21:37 | disposition home or self-care (01) ==
PROVIDERS: Emergency Medicine; Emergency Provider Emergency Medicine; PCP Family Medicine
DX: S20.211A Contusion of right front wall of thorax, initial encounter (principal); J40 Bronchitis, not specified as acute or chronic; W19.XXXA Unspecified fall, initial encounter
CPT/HCPCS: 36415; 71045; 80053; 84484; 85025; 93005; 94640; 96374; 96375; 99285; J2270; J2405; J2930

== ENCOUNTER 2025-01-10 23:52 | Emergency (ER) | payer OTHER, MEDICARE, SELFPAY ==
[2025-01-10 23:58] VITALS: BP 175/93; PULSE 75; RESP 15; TEMP 36.7; O2SAT 99; BMI 25.0
[2025-01-11] VITALS (10 sets, daily range): BP systolic 156–183; BP diastolic 67–94; PULSE 67–81; O2SAT 90–97
--- NOTE | 2025-01-11 01:20 | ECG_ITS ---
[facility] Date: 2025-[facility]11 Pat Name: Vikram Lawrence Department: Room: Gender: Male Fire Investigator: : 1955 Requested By: Enrike Carter Order Number: [id number] Reading MD: Measurements Intervals [place] Rate: 66 P: 43 IN: 152 QRS: -42 QRSD: 107 T: 73 QT: 427 QTc: 450 Interpretive Statements SINUS RHYTHM LEFT AXIS DEVIATION [QRS AXIS < -30] MODERATE VOLTAGE CRITERIA FOR LVH, CONSIDER NORMAL VARIANT [MEETS CRITERIA IN ONE OF: R(aVL), S(V1), R(V5), R(V5/V6)+S(V1)] PROBABLE LATERAL MYOCARDIAL INFARCTION , OF INDETERMINATE AGE [35 ms Q WAVE IN I/aVL/V5/V6] No previous ECG available for comparison [email or web address] [id number]
--- NOTE | 2025-01-11 01:47 | W.ED.GENADLT ---
Documented by User: Sarita Barboza MD 01/11/25 05:44 HPI - General Adult General: Chief complaint: General Medical Stated complaint: weakness,waist down feels like a vein block Time Seen by Provider: 01/11/25 01:25 History of Present Illness: Patient presents emergency room with bilateral leg pain that has been going on for several months now. He says he talked to his primary care provider and was told to come to the emergency room. He says he had a hole in his aorta at some point. He is not a very good historian. Related Data Previous Rx's ?Medication ?Instructions ?Recorded albuterol sulfate 90 mcg/actuation 2 inh inhalation Q4H PRN shortness 11/28/23 aerosol inhaler of breath or wheezing #6.7 grams hydrocodone 5 mg-acetaminophen 325 1 tab PO Q8H PRN pain #7 tabs 11/28/23 mg tablet methylprednisolone 4 mg tablets in See Rx Instructions PO .COMPLEX 11/28/23 a dose pack (Medrol (Cam)) #21 ea amlodipine 5 mg tablet 5 mg PO DAILY #30 tabs 01/11/25 cilostazol 50 mg tablet 50 mg PO BID #60 tabs 01/11/25 pantoprazole 40 mg tablet,delayed 40 mg PO DAILY #30 tabs 01/11/25 release (Protonix) Review of Systems Narrative: Constitutional symptoms: Negative except as documented in HPI. Skin symptoms: Negative except as documented in HPI. Eye symptoms: Negative except as documented in HPI. ENMT symptoms: Negative except as documented in HPI. Respiratory symptoms: Negative except as documented in HPI. Cardiovascular symptoms: Negative except as documented in HPI. Gastrointestinal symptoms: Negative except as documented in HPI. Genitourinary symptoms: Negative except as documented in HPI. Musculoskeletal symptoms: Negative except as documented in HPI. Neurologic symptoms: Negative except as documented in HPI. Psychiatric symptoms: Negative except as documented in HPI. Endocrine symptoms: Negative except as documented in HPI. PFSH ED PFSH: Medical History Peripheral artery disease Neuropathic pain of both legs Surgical History History of dissecting abdominal aortic aneurysm repair Physical Exam Narrative: EXAM NARRATIVE: General: Alert, no acute distress. Skin: Warm, dry. Head: Normocephalic, atraumatic. Neck: Supple, trachea midline. Eye: Extraocular movements are intact. Ears, nose, mouth and throat: mucosa moist. Cardiovascular: Regular, Normal peripheral perfusion. Respiratory: Lungs are clear to auscultation, respirations are non-labored, breath sounds are equal, Symmetrical chest wall expansion. Gastrointestinal: Soft, Nontender, Non distended Musculoskeletal: Normal ROM, no deformity. Extremities are warm. Pulses are good. Neurological: Alert and oriented, No focal neurological deficit observed. Psychiatric: Cooperative, appropriate mood & affect. Course Vital Signs: Vital signs: Vital Signs Temperature 98.0 F 01/10/25 23:58 Pulse Rate 75 01/11/25 06:30 Respiratory Rate 15 01/10/25 23:58 Blood Pressure 171/94 01/11/25 06:30 Pulse Oximetry 90 01/11/25 06:30 Oxygen Delivery Me thod Room Air 01/11/25 03:07 MDM - General Adult Medical Decision Making Patient care transitioned to Dr. Jerry at shift change Lab Data 01/11/25 01:55 01/11/25 01:55 Radiology Impressions Aorta w/Runoff CTA 01/11/25 03:04 IMPRESSION: 1. Atherosclerosis as detailed above. 2. Bronchial wall thickening involving the lower lobe bronchi suggesting a degree of bronchitis or respiratory bronchiolitis. 3. Wall thickening involving the distal esophagus suggesting a degree of esophagitis. There may be a small hiatal hernia. 4. Diverticulosis. Laboratory Results WBC 11.34 10^3/uL (3.29-11.43) 01/11/25 01:55 RBC 4.94 10^6/uL (3.85-5.65) 01/11/25 01:55 Hgb 13.80 g/dL (11.27-16.99) 01/11/25 01:55 Hct 42.8 % (37-53) 01/11/25 01:55 MCV 86.6 fl (82-101) 01/11/25 01:55 MCH 27.9 pg (27-33) 01/11/25 01:55 MCHC 32.2 g/dL (30-55) 01/11/25 01:55 RDW 15.5 % (12.1-15.1) H 01/11/25 01:55 Plt Count 272 10^3/cmm (157-399) 01/11/25 01:55 MPV 8.8 fL (7.4-10.4) 01/11/25 01:55 Neut % (Auto) 55.1 % 01/11/25 01:55 Lymph % (Auto) 31.3 % 01/11/25 01:55 [place] % (Auto) 9.0 % 01/11/25 01:55 Eos % (Auto) 3.8 % 01/11/25 01:55 Baso % (Auto) 0.4 % 01/11/25 01:55 Neut # (Auto) 6.25 10^3/uL (1.8-7.7) 01/11/25 01:55 Lymph # (Auto) 3.6 10^3/uL (0.8-4.8) 01/11/25 01:55 [place] # (Auto) 1.0 10^3/uL (0.2-0.9) H 01/11/25 01:55 Eos # (Auto) 0.4 10^3/uL (0.0-0.8) 01/11/25 01:55 Baso # (Auto) 0.1 10^3/uL (0.0-0.1) 01/11/25 01:55 Nucleated RBC % (auto) 0 % 01/11/25 01:55 Nucleated RBCs # 0.0 /100WBC 01/11/25 01:55 Sodium 139 mmol/L (136-145) 01/11/25 01:55 Potassium 4.1 mmol/L (3.5-5.1) 01/11/25 01:55 Chloride 105 mmol/L (98-107) 01/11/25 01:55 Carbon Dioxide 24 mmol/L (22-29) 01/11/25 01:55 Anion Gap 14.1 (5-19) 01/11/25 01:55 BUN 21 mg/dL (8-23) 01/11/25 01:55 Creatinine 1.1 mg/dL (0.7-1.2) 01/11/25 01:55 GFR Calculation 66.8 mL/min (90-130) L 01/11/25 01:55 Glucose 102 mg/dL (65-115) 01/11/25 01:55 Calculated Osmolality 291 mOsm/kg (285-295) 01/11/25 01:55 Lactic Acid 1.9 mmol/L (0.5-2.2) 01/11/25 01:55 Calcium 9.8 mg/dL (8.5-10.5) 01/11/25 01:55 Total Bilirubin 0.2 mg/dL (0.15-1.2) 01/11/25 01:55 AST 11 U/L (0-40) 01/11/25 01:55 ALT 8 U/L (0-41) 01/11/25 01:55 Alkaline Phosphatase 78 U/L (40-130) 01/11/25 01:55 C-Reactive Protein 7.2 mg/L (0.0-4.9) H 01/11/25 01:55 Total Protein 7.3 g/dL (6.6-8.7) 01/11/25 01:55 Albumin 3.8 g/dL (3.5-5.2) 01/11/25 01:55 Globulin 3.5 g/dL (1.3-4.6) 01/11/25 01:55 Discharge Plan Discharge Patient Disposition: Home Clinical Impression: Neuropathic pain of both legs, Hypertension, Esophageal hiatal hernia, Esophagitis, PAD (peripheral artery disease) Condition: Stable Prescriptions: New amlodipine 5 mg tablet 5 mg PO DAILY Qty: 30 0RF pantoprazole [Protonix] 40 mg tablet,delayed release (DR/EC) 40 mg PO DAILY Qty: 30 0RF cilostazol 50 mg tablet 50 mg PO BID Qty: 60 0RF No Action hydrocodone-acetaminophen 5-325 mg tablet 1 tab PO Q8H PRN (Reason: pain) Qty: 7 0RF Medrol (Cam) 4 mg tablets,dose pack See Rx Instructions .ROUTE .COMPLEX Qty: 21 0RF Rx Instructions: orally per package directions albuterol sulfate 90 mcg/actuation HFA aerosol inhaler 2 inh INHALATION Q4H PRN (Reason: shortness of breath or wheezing) Qty: 6.7 1RF Discharge Orders: Discharge ED (Routine); Ordered 01/11/25 Ordered By: Enrike Jerry Referrals: Susan Sullivan, [Primary Care Provider] - Discharge Diet: Usual diet Discharge Activity: Increase activity as tolerated Patient Instructions: Opioid Safety, Pain Management Activity Restrictions/Additional Instructions: Thank you for choosing [facility] for your healthcare needs today. Please realize this is an emergency room and that we are providing you with a medical screening exam and this may not be complete and all inclusive of all the testing and or work up that you may need to determine your ailment or severity of your illness. You have been screened and evaluated and felt safe for discharge. Health conditions do change or evolve sometimes and as such it is important that you follow up with your Primary Doctor to be re checked, 3-5 days is a general good time frame for follow up. You are always welcome to return to the ED for re assessment if your symptoms are worsening or you have new concerns. The CT of your aorta did not show any acute occlusions or dissections. The previous bypass graft appears stable. You do have peripheral artery disease. You should start cilostazol 50 mg 1 tablet twice a day for this. This will help improve blood flow to your legs. Your blood pressure was also noted to be elevated. Improving your blood pressure control will also help your blood flow to your legs for this you were started on amlodipine 5 mg daily. Finally there was signs of significant reflux and a hiatal hernia on the CT you should start Protonix 40 mg daily. Follow-up with your primary care doctor within the next week to reevaluate these issues. Print Language: Peruvian Sign Out Sign Out Data: Patient Sign Out occurred on 01/11/25 at 06:32. Patient's care was discussed, and care was transferred from Sarita Barboza MD to Enrike Jerry DO. 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[facility] [employer] Documented by User: Enrike Jerry DO 01/11/25 06:49 HPI - General Adult General: Chief complaint: General Medical Stated complaint: weakness,waist down feels like a vein block Time Seen by Provider: 01/11/25 01:25 Related Data Previous Rx's ?Medication ?Instructions ?Recorded albuterol sulfate 90 mcg/actuation 2 inh inhalation Q4H PRN shortness 11/28/23 aerosol inhaler of breath or wheezing #6.7 grams hydrocodone 5 mg-acetaminophen 325 1 tab PO Q8H PRN pain #7 tabs 11/28/23 mg tablet methylprednisolone 4 mg tablets in See Rx Instructions PO .COMPLEX 11/28/23 a dose pack (Medrol (Cam)) #21 ea amlodipine 5 mg tablet 5 mg PO DAILY #30 tabs 01/11/25 cilostazol 50 mg tablet 50 mg PO BID #60 tabs 01/11/25 pantoprazole 40 mg tablet,delayed 40 mg PO DAILY #30 tabs 01/11/25 release (Protonix) PFS ED PFSH: Medical History Peripheral artery disease Neuropathic pain of both legs Surgical History History of dissecting abdominal aortic aneurysm repair Course Vital Signs: Vital signs: Vital Signs Temperature 98.0 F 01/10/25 23:58 Pulse Rate 75 01/11/25 06:30 Respiratory Rate 15 01/10/25 23:58 Blood Pressure 171/94 01/11/25 06:30 Pulse Oximetry 90 01/11/25 06:30 Oxygen Delivery Me thod Room Air 01/11/25 03:07 MDM - General Adult Medical Decision Making Patient care transitioned to Dr. Jerry at shift change Care assumed at change of shift records reviewed in 2022 patient had a dissecting infrarenal abdominal aortic aneurysm for which she was transferred to the [facility]. Patient evaluated the CT today graft was placed. CT today shows peripheral artery disease which appears to be chronic with no dissection or occlusion acute occlusion at this time. Patient does have poorly controlled blood pressure Will add amlodipine 5 mg daily. Follow-up with primary care within the next week to reevaluate blood pressure. It is also notation on the CT is some bronchial wall thickening however patient is not complaining of any respiratory symptoms at this time he is not started on any medications for this. Finally there is some description of thickening of the distal esophagus. Started on Protonix. He should follow-up regarding these issues with his primary care physician Medical Records I reviewed the patient's medical records. Lab Data I reviewed the patient's lab results. 01/11/25 01:55 01/11/25 01:55 Radiology Impressions Aorta w/Runoff CTA 01/11/25 03:04 IMPRESSION: 1. Atherosclerosis as detailed above. 2. Bronchial wall thickening involving the lower lobe bronchi suggesting a degree of bronchitis or respiratory bronchiolitis. 3. Wall thickening involving the distal esophagus suggesting a degree of esophagitis. There may be a small hiatal hernia. 4. Diverticulosis. Laboratory Results WBC 11.34 10^3/uL (3.29-11.43) 01/11/25 01:55 RBC 4.94 10^6/uL (3.85-5.65) 01/11/25 01:55 Hgb 13.80 g/dL (11.27-16.99) 01/11/25 01:55 Hct 42.8 % (37-53) 01/11/25 01:55 MCV 86.6 fl (82-101) 01/11/25 01:55 MCH 27.9 pg (27-33) 01/11/25 01:55 MCHC 32.2 g/dL (30-55) 01/11/25 01:55 RDW 15.5 % (12.1-15.1) H 01/11/25 01:55 Plt Count 272 10^3/cmm (157-399) 01/11/25 01:55 MPV 8.8 fL (7.4-10.4) 01/11/25 01:55 Neut % (Auto) 55.1 % 01/11/25 01:55 Lymph % (Auto) 31.3 % 01/11/25 01:55 [place] % (Auto) 9.0 % 01/11/25 01:55 Eos % (Auto) 3.8 % 01/11/25 01:55 Baso % (Auto) 0.4 % 01/11/25 01:55 Neut # (Auto) 6.25 10^3/uL (1.8-7.7) 01/11/25 01:55 Lymph # (Auto) 3.6 10^3/uL (0.8-4.8) 01/11/25 01:55 [place] # (Auto) 1.0 10^3/uL (0.2-0.9) H 01/11/25 01:55 Eos # (Auto) 0.4 10^3/uL (0.0-0.8) 01/11/25 01:55 Baso # (Auto) 0.1 10^3/uL (0.0-0.1) 01/11/25 01:55 Nucleated RBC % (auto) 0 % 01/11/25 01:55 Nucleated RBCs # 0.0 /100WBC 01/11/25 01:55 Sodium 139 mmol/L (136-145) 01/11/25 01:55 Potassium 4.1 mmol/L (3.5-5.1) 01/11/25 01:55 Chloride 105 mmol/L (98-107) 01/11/25 01:55 Carbon Dioxide 24 mmol/L (22-29) 01/11/25 01:55 Anion Gap 14.1 (5-19) 01/11/25 01:55 BUN 21 mg/dL (8-23) 01/11/25 01:55 Creatinine 1.1 mg/dL (0.7-1.2) 01/11/25 01:55 GFR Calculation 66.8 mL/min (90-130) L 01/11/25 01:55 Glucose 102 mg/dL (65-115) 01/11/25 01:55 Calculated Osmolality 291 mOsm/kg (285-295) 01/11/25 01:55 Lactic Acid 1.9 mmol/L (0.5-2.2) 01/11/25 01:55 Calcium 9.8 mg/dL (8.5-10.5) 01/11/25 01:55 Total Bilirubin 0.2 mg/dL (0.15-1.2) 01/11/25 01:55 AST 11 U/L (0-40) 01/11/25 01:55 ALT 8 U/L (0-41) 01/11/25 01:55 Alkaline Phosphatase 78 U/L (40-130) 01/11/25 01:55 C-Reactive Protein 7.2 mg/L (0.0-4.9) H 01/11/25 01:55 Total Protein 7.3 g/dL (6.6-8.7) 01/11/25 01:55 Albumin 3.8 g/dL (3.5-5.2) 01/11/25 01:55 Globulin 3.5 g/dL (1.3-4.6) 01/11/25 01:55 All radiology interpretation(s) finalized by discharge Discharge Plan Discharge Patient Disposition: Home Clinical Impression: Neuropathic pain of both legs, Hypertension, Esophageal hiatal hernia, Esophagitis, PAD (peripheral artery disease) Condition: Stable Prescriptions: New amlodipine 5 mg tablet 5 mg PO DAILY Qty: 30 0RF pantoprazole [Protonix] 40 mg tablet,delayed release (DR/EC) 40 mg PO DAILY Qty: 30 0RF cilostazol 50 mg tablet 50 mg PO BID Qty: 60 0RF No Action hydrocodone-acetaminophen 5-325 mg tablet 1 tab PO Q8H PRN (Reason: pain) Qty: 7 0RF Medrol (Cam) 4 mg tablets,dose pack See Rx Instructions .ROUTE .COMPLEX Qty: 21 0RF Rx Instructions: orally per package directions albuterol sulfate 90 mcg/actuation HFA aerosol inhaler 2 inh INHALATION Q4H PRN (Reason: shortness of breath or wheezing) Qty: 6.7 1RF Discharge Orders: Discharge ED (Routine); Ordered 01/11/25 Ordered By: Enrike Jerry Referrals: Susan Sullivan DO [Primary Care Provider] - Discharge Diet: Usual diet Discharge Activity: Increase activity as tolerated Patient Instructions: Opioid Safety, Pain Management Activity Restrictions/Additional Instructions: Thank you for choosing [facility] for your healthcare needs today. Please realize this is an emergency room and that we are providing you with a medical screening exam and this may not be complete and all inclusive of all the testing and or work up that you may need to determine your ailment or severity of your illness. You have been screened and evaluated and felt safe for discharge. Health conditions do change or evolve sometimes and as such it is important that you follow up with your Primary Doctor to be re checked, 3-5 days is a general good time frame for follow up. You are always welcome to return to the ED for re assessment if your symptoms are worsening or you have new concerns. The CT of your aorta did not show any acute occlusions or dissections. The previous bypass graft appears stable. You do have peripheral artery disease. You should start cilostazol 50 mg 1 tablet twice a day for this. This will help improve blood flow to your legs. Your blood pressure was also noted to be elevated. Improving your blood pressure control will also help your blood flow to your legs for this you were started on amlodipine 5 mg daily. Finally there was signs of significant reflux and a hiatal hernia on the CT you should start Protonix 40 mg daily. Follow-up with your primary care doctor within the next week to reevaluate these issues. Print Language: Peruvian Sign Out Sign Out Data: Patient Sign Out occurred on 01/11/25 at 06:32. Patient's care was discussed, and care was transferred from Sarita Barboza MD to Enrike Jerry DO. 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
[2025-01-11 02:17] LABS: Basophils # 0.1 10^3/uL (0.0-0.1); Basophils % 0.4 %; Eosinophils # 0.4 10^3/uL (0.0-0.8); Eosinophils % 3.8 %; Hematocrit 42.8 % (37-53); Lymphocytes # 3.6 10^3/uL (0.8-4.8); Lymphocytes % 31.3 %; Mean Corpuscular HGB Conc 32.2 g/dL (30-55); Mean Corpuscular Hemoglobin 27.9 pg (27-33); Mean Corpuscular Volume 86.6 fl (82-101); Mean Platelet Volume 8.8 fL (7.4-10.4); Neutrophils # 6.25 10^3/uL (1.8-7.7); Neutrophils % 55.1 %; Nucleated Red Blood Cells % 0 %; Platelet Count 272 10^3/cmm (157-399); Red Blood Count 4.94 10^6/uL (3.85-5.65); Red Cell Distribution Width 15.5 % (12.1-15.1); White Blood Count 11.34 10^3/uL (3.29-11.43)
[2025-01-11 02:32] LABS: Lactic Sepsis W/Reflex 1.9 mmol/L (0.5-2.2)
[2025-01-11 02:33] LABS: Alanine Aminotransferase 8 U/L (0-41); Albumin Level 3.8 g/dL (3.5-5.2); Alkaline Phosphatase 78 U/L (40-130); Anion Gap 14.1 (5-19); Aspartate Amino Transferase 11 U/L (0-40); Blood Urea Nitrogen 21 mg/dL (8-23); C Reactive Protein 7.2 mg/L (0.0-4.9); Calcium 9.8 mg/dL (8.5-10.5); Carbon Dioxide 24 mmol/L (22-29); Chloride 105 mmol/L (98-107); Creatinine Clr Calc Pharmacy 75.9617; Globulin 3.5 g/dL (1.3-4.6); Glomerular Filtration Rate 66.8 mL/min (90-130); Glucose 102 mg/dL (65-115); Osmolality Calculated 291 mOsm/kg (285-295); Potassium 4.1 mmol/L (3.5-5.1); Sodium 139 mmol/L (136-145); Total Bilirubin 0.2 mg/dL (0.15-1.2); Total Protein 7.3 g/dL (6.6-8.7)
--- NOTE | 2025-01-11 03:04 | CTR_ITS ---
PROCEDURE INFORMATION: Exam: CTA Abdominal Aorta and Bilateral Lower Extremities (Run-off) With Contrast Exam date and time: 01/11/2025 3:29 AM Age: 69 years old Clinical indication: Foot pain; Bilateral; Additional info: Leg pain, aortic issues in thepast TECHNIQUE: Imaging protocol: Computed tomographic angiography of the of the abdominal aorta, pelvis and bilateral lower extremities with contrast. 3D rendering (Not supervised by radiologist): MIP and/or 3D reconstructed images were created by the technologist. Radiation optimization: All CT scans at this facility use at least one of these dose optimization techniques: automated exposure control; mA and/or kV adjustment per patient size (includes targeted exams where dose is matched to clinical indication); or iterative reconstruction. Contrast material: OMNI 350; Contrast volume: 120 ml; Contrast route: INTRAVENOUS (IV); COMPARISON: CT abdomen pelvis w con* [id number] 12/09/2022 4:12 PM RADIATION DOSE METRICS: Total DLP (mGy-cm): 830.72 FINDINGS: Aorta: The aorta is normal in caliber without aneurysm or dissection. There is calcified and noncalcified plaque involving the aorta. There is a distal aorto bi-iliac graft which is patent. Celiac trunk and mesenteric arteries: The origins of the celiac axis and SMA are widely patent. The CINTHIA is not identified. Renal arteries: There are 2 patent renal arteries on the right. There are 2 patent renal arteries on the left. Right iliac arteries: The right common iliac artery is patent. There is moderate narrowing involving the origin of the internal iliac artery. There is a high-grade stenosis involving the proximal external iliac artery estimated at 85%. There are scattered calcified and noncalcified plaque without high-grade stenosis involving the more distal right external iliac artery. Right femoral/popliteal arteries: There are scattered plaque most pronounced involving the distal SFA. No definite high-grade stenosis or occlusion is identified. Maximal stenosis involving the distal right SFA is felt to be less than 50%. The popliteal artery is patent. Right infrapopliteal arteries: There is a diseased but patent tibioperoneal trunk. There is a focal occlusion with reconstitution involving the proximal anterior tibial artery. The peroneal and posterior tibial arteries appear to be patent to the ankle/foot. Left iliac arteries: There is narrowing involving the left common iliac artery with stenosis of 50%. Moderate to high-grade stenosis noted involving the origin of the internal iliac artery. There are scattered plaque without high-grade stenosis involving the external iliac artery. Left femoral/popliteal arteries: There are scattered plaque involving the left common femoral, superficial femoral and popliteal arteries. There is a high-grade stenosis involving the left SFA (series 4, image 676) estimated at 80%. There is narrowing involving the more distal SFA/popliteal junction with stenosis of 50-60% (series 4, image 816) mild narrowing involving the popliteal artery felt to be less than 50%. Left infrapopliteal arteries: There is a diseased but patent tibioperoneal trunk. There is occlusion with more distal reconstitution of the anterior tibial artery. The posterior tibial artery is somewhat diseased proximally but is patent to the level of the ankle/foot. The peroneal artery is patent. Lungs: There is bronchial wall thickening involving the lower lobe bronchi suggesting a degree of bronchitis or respiratory bronchiolitis. Esophagus: There is mild wall thickening involving the distal esophagus suggesting the possibility of esophagitis. There may be a small hiatal hernia. Liver: There is diffuse fatty infiltration of the liver. The liver is otherwise normal. Gallbladder and biliary ducts: Unremarkable. No calcified stones. No ductal dilation. Pancreas: Unremarkable. No mass. No ductal dilation. Spleen: Normal. No splenomegaly. Adrenal glands: Normal. No mass. Kidneys and ureters: Normal. No mass. Stomach and bowel: There are scattered colonic diverticula. No large bowel wall thickening is appreciated. No dilated loops of large or small bowel is appreciated. Appendix: No evidence of appendicitis. Urinary bladder: Unremarkable. No mass. Reproductive: Unremarkable as visualized. Intraperitoneal space: Unremarkable. No free air. No significant fluid collection. Lymph nodes: No lymphadenopathy. Bones/joints: No acute fracture. No dislocation. Soft tissues: Unremarkable. CT/CT angio abd aorta runof [id number] IMPRESSION: 1. Atherosclerosis as detailed above. 2. Bronchial wall thickening involving the lower lobe bronchi suggesting a degree of bronchitis or respiratory bronchiolitis. 3. Wall thickening involving the distal esophagus suggesting a degree of esophagitis. There may be a small hiatal hernia. 4. Diverticulosis.
[2025-01-11] MEDS: iohexol 350 mg/mL 500 mL Btl (per mL) IV (03:46)
== END 2025-01-11 07:09 | disposition home or self-care (01) ==
PROVIDERS: Emergency Medicine; Emergency Provider Family Medicine; PCP Family Medicine
DX: M79.604 Pain in right leg (principal); M79.605 Pain in left leg; I10 Essential (primary) hypertension; K44.9 Diaphragmatic hernia without obstruction or gangrene; K20.90 Esophagitis, unspecified without bleeding; I73.9 Peripheral vascular disease, unspecified
CPT/HCPCS: 36415; 75635; 80053; 83605; 85025; 86140; 93005; 99285

== ENCOUNTER 2025-02-23 11:18 | Emergency (ER) | payer OTHER, SELFPAY ==
[2025-02-23 11:37] VITALS: BP 167/89; PULSE 95; RESP 18; TEMP 36.5; O2SAT 96; BMI 26.4
[2025-02-23 12:34] VITALS: BP 155/76; PULSE 90; O2SAT 97
[2025-02-23 12:42] VITALS: BP 146/82; PULSE 90; O2SAT 96
[2025-02-23 12:49] LABS: Basophils # 0.1 10^3/uL (0.0-0.1); Basophils % 0.3 %; Eosinophils # 1.9 10^3/uL (0.0-0.8); Eosinophils % 12.7 %; Hematocrit 41.1 % (37-53); Lymphocytes # 3.7 10^3/uL (0.8-4.8); Lymphocytes % 24.2 %; Mean Corpuscular HGB Conc 34.5 g/dL (30-55); Mean Corpuscular Volume 83.9 fl (82-101); Mean Platelet Volume 8.7 fL (7.4-10.4); Monocytes # 0.8 10^3/uL (0.2-0.9); Monocytes % 4.9 %; Neutrophils # 8.55 10^3/uL (1.8-7.7); Neutrophils % 56.3 %; Nucleated Red Blood Cells % 0 %; Platelet Count 325 10^3/cmm (157-399); Red Cell Distribution Width 15.2 % (12.1-15.1)
--- NOTE | 2025-02-23 12:53 | PC.PHAR ---
Pt is [facility] [phone]-Verified medications with Vanessa Wright [facility]. Pt states last took medications on the .
[2025-02-23 13:00] VITALS: BP 150/83; PULSE 85; O2SAT 93
[2025-02-23 13:12] LABS: Alanine Aminotransferase 7 U/L (0-41); Albumin Level 4.3 g/dL (3.5-5.2); Alkaline Phosphatase 94 U/L (40-130); Anion Gap 16.4 (5-19); Aspartate Amino Transferase 12 U/L (0-40); Blood Urea Nitrogen 20 mg/dL (8-23); C Reactive Protein 8.1 mg/L (0.0-4.9); Calcium 10.2 mg/dL (8.5-10.5); Carbon Dioxide 19 mmol/L (22-29); Chloride 107 mmol/L (98-107); Globulin 3.3 g/dL (1.3-4.6); Glomerular Filtration Rate 74.5 mL/min (90-130); Glucose 145 mg/dL (65-115); Osmolality Calculated 291 mOsm/kg (285-295); Potassium 4.4 mmol/L (3.5-5.1); Sodium 138 mmol/L (136-145); Total Bilirubin 0.2 mg/dL (0.15-1.2); Total Protein 7.6 g/dL (6.6-8.7)
[2025-02-23 13:30] VITALS: BP 163/80; PULSE 80; O2SAT 94
--- NOTE | 2025-02-23 13:34 | XR_ITS ---
WS: [id number] Exam: XR chest 1V portable [id number] Date/Time of Exam: 02/23/2025 1:34 PM Reason For Exam: Weakness Comparison 11/28/2023. The lungs are fully expanded and clear. Chronic change in the LEFT lower lobe. Normal cardiomediastinal silhouette. Bony structures are intact. Several old bilateral rib fractures. XR/XR chest 1V portable [id number] IMPRESSION: 1. No acute finding.
--- NOTE | 2025-02-23 13:34 | W.ED.RECABL ---
HPI - Recheck/Abnormal Lab/Rx General: Chief Complaint: Recheck/Abnormal Lab/Rx Stated Complaint: abnormal labs Time Seen by Provider: 02/23/25 12:33 History of Present Illness: 69-year-old male with a history of peripheral vascular disease, hypertension who presents emergency room after he was seen at the NH yesterday. They done lab work with plans to have stenting of his legs for peripheral vascular disease. This was a presurgical workup. His white count was elevated so they told him to come to the emergency room. He said it was 19,000. He says he has had some intermittent diarrhea for the past few weeks but has not had any today or yesterday. No abdominal pain. No cough. No shortness of breath. No fevers. He said he has had some episodes of lightheadedness over the last few days. No recent antibiotics. Related Data Home Medications ?Medication ?Instructions ?Recorded ?Confirmed amlodipine 10 mg tablet 5 mg PO QAM 02/23/25 02/23/25 cilostazol 100 mg tablet 50 mg PO BID 02/23/25 02/23/25 cyclobenzaprine 10 mg tablet 10 mg PO DAILY PRN Spasms 02/23/25 02/23/25 lisinopril 20 mg tablet 20 mg PO QAM 02/23/25 02/23/25 naproxen 500 mg tablet (Naprosyn) 500 mg PO BID 02/23/25 02/23/25 pantoprazole 40 mg tablet,delayed 40 mg PO QAM 02/23/25 02/23/25 release (Protonix) sildenafil 25 mg tablet (Viagra) 25 mg PO DAILY PRN Erectile 02/23/25 02/23/25 Dysfunction Previous Rx's ?Medication ?Instructions ?Recorded albuterol sulfate 90 mcg/actuation 2 inh inhalation Q4H PRN shortness 11/28/23 aerosol inhaler of breath or wheezing #6.7 grams Allergies Allergy/AdvReac Type Severity Reaction Status Date / Time Iodinated Contrast Media Allergy ADR-Vomitin Verified 02/23/25 12:55 g Review of Systems Narrative: Constitutional symptoms: Negative except as documented in HPI. Skin symptoms: Negative except as documented in HPI. Eye symptoms: Negative except as documented in HPI. ENMT symptoms: Negative except as documented in HPI. Respiratory symptoms: Negative except as documented in HPI. Cardiovascular symptoms: Negative except as documented in HPI. Gastrointestinal symptoms: Negative except as documented in HPI. Genitourinary symptoms: Negative except as documented in HPI. Musculoskeletal symptoms: Negative except as documented in HPI. Neurologic symptoms: Negative except as documented in HPI. Psychiatric symptoms: Negative except as documented in HPI. Endocrine symptoms: Negative except as documented in HPI. [facility] ED PFSH: Medical History Peripheral artery disease Neuropathic pain of both legs Surgical History History of dissecting abdominal aortic aneurysm repair Physical Exam Narrative: EXAM NARRATIVE: General: Alert, no acute distress. Skin: Warm, dry. Head: Normocephalic, atraumatic. Neck: Supple, trachea midline. Eye: Extraocular movements are intact. Ears, nose, mouth and throat: mucosa moist. Cardiovascular: Regular, Normal peripheral perfusion. Respiratory: Lungs are clear to auscultation, respirations are non-labored, breath sounds are equal, Symmetrical chest wall expansion. Gastrointestinal: Soft, Nontender, Non distended Musculoskeletal: Normal ROM, no deformity. Neurological: Alert and oriented, No focal neurological deficit observed. Psychiatric: Cooperative, appropriate mood & affect. Course Vital Signs: Vital signs: Vital Signs Temperature 97.7 F 02/23/25 11:37 Pulse Rate 82 02/23/25 14:23 Respiratory Rate 18 02/23/25 11:37 Blood Pressure 166/78 02/23/25 14:23 Pulse Oximetry 96 02/23/25 14:23 Oxygen Delivery Me thod Room Air 02/23/25 13:30 MDM - Recheck/Abnormal Lab/Rx Medical Decision Making Medical decision making: Differential diagnosis for patient presenting with generalized abnormal labs/leukocytosis including but not limited to and based on the above HPI, review of systems and physical exam: Sepsis. Dehydration. Renal failure. Electrolyte abnormalities. Anemia. Congestive heart failure. Hypotension. Coronary syndrome. Hepatitis. Cirrhosis. Infections such as pneumonia, urinary tract infection, [place]ick [place]ne illness, Cellulitis, Viral infections including influenza and Covid-19. Workup: labwork and lab/exam driven imaging ordered to evaluate, rule in and rule out above pathologies. Chest x-ray: No acute process. No infiltrate. No pneumothorax. This was reviewed and interpreted by myself the emergency room physician. I also reviewed the radiology report. Lab Review: Laboratory results were reviewed and interpreted by myself the emergency room physician. Patient has mild leukocytosis with a white count of 15,000 here today. Looking back at the records he always has a fairly elevated white count. Ranging between 10 and 14,000 in the past. No signs of infection. No symptoms of infection. Lab work is negative for infection urinalysis is negative. He is no longer have any diarrhea and has not been on any antibiotics recently so I do not think he has C. difficile. He is not able to provide a sample during his stay here today. Neutrophils are only 55%, no left shift, which would indicate there is no bacterial infection that is being followed at this time. I reviewed the patient's medical record. Reexamination: Patient remained stable. No increased work of breathing. No altered mental status. No focal motor deficits. Assessment and plan: Leukocytosis - Discharged home - Discussed plan with patient. Answered any questions. - Evaluation and treatment of this problem were appropriate in the emergency setting. Lab Data 02/23/25 12:37 02/23/25 12:37 Radiology Impressions Chest X-Ray 02/23/25 13:34 IMPRESSION: 1. No acute finding. Laboratory Results WBC 15.20 10^3/uL (3.29-11.43) H 02/23/25 12:37 RBC 4.90 10^6/uL (3.85-5.65) 02/23/25 12:37 Hgb 14.20 g/dL (11.27-16.99) 02/23/25 12:37 Hct 41.1 % (37-53) 02/23/25 12:37 MCV 83.9 fl (82-101) 02/23/25 12:37 MCH 29.0 pg (27-33) 02/23/25 12:37 MCHC 34.5 g/dL (30-55) 02/23/25 12:37 RDW 15.2 % (12.1-15.1) H 02/23/25 12:37 Plt Count 325 10^3/cmm (157-399) 02/23/25 12:37 MPV 8.7 fL (7.4-10.4) 02/23/25 12:37 Neut % (Auto) 56.3 % 02/23/25 12:37 Lymph % (Auto) 24.2 % 02/23/25 12:37 Keith % (Auto) 4.9 % 02/23/25 12:37 Eos % (Auto) 12.7 % 02/23/25 12:37 Baso % (Auto) 0.3 % 02/23/25 12:37 Neut # (Auto) 8.55 10^3/uL (1.8-7.7) H 02/23/25 12:37 Lymph # (Auto) 3.7 10^3/uL (0.8-4.8) 02/23/25 12:37 Keith # (Auto) 0.8 10^3/uL (0.2-0.9) 02/23/25 12:37 Eos # (Auto) 1.9 10^3/uL (0.0-0.8) H 02/23/25 12:37 Baso # (Auto) 0.1 10^3/uL (0.0-0.1) 02/23/25 12:37 Nucleated RBC % (auto) 0 % 02/23/25 12:37 Nucleated RBCs # 0.0 /100WBC 02/23/25 12:37 Sodium 138 mmol/L (136-145) 02/23/25 12:37 Potassium 4.4 mmol/L (3.5-5.1) 02/23/25 12:37 Chloride 107 mmol/L (98-107) 02/23/25 12:37 Carbon Dioxide 19 mmol/L (22-29) L 02/23/25 12:37 Anion Gap 16.4 (5-19) 02/23/25 12:37 BUN 20 mg/dL (8-23) 02/23/25 12:37 Creatinine 1.0 mg/dL (0.7-1.2) 02/23/25 12:37 GFR Calculation 74.5 mL/min (90-130) L 02/23/25 12:37 Glucose 145 mg/dL (65-115) H 02/23/25 12:37 Calculated Osmolality 291 mOsm/kg (285-295) 02/23/25 12:37 Lactic Acid 2.0 mmol/L (0.5-2.2) 02/23/25 12:37 Calcium 10.2 mg/dL (8.5-10.5) 02/23/25 12:37 Total Bilirubin 0.2 mg/dL (0.15-1.2) 02/23/25 12:37 AST 12 U/L (0-40) 02/23/25 12:37 ALT 7 U/L (0-41) 02/23/25 12:37 Alkaline Phosphatase 94 U/L (40-130) 02/23/25 12:37 C-Reactive Protein 8.1 mg/L (0.0-4.9) H 02/23/25 12:37 Total Protein 7.6 g/dL (6.6-8.7) 02/23/25 12:37 Albumin 4.3 g/dL (3.5-5.2) 02/23/25 12:37 Globulin 3.3 g/dL (1.3-4.6) 02/23/25 12:37 Urine Color Yellow (Yellow) 02/23/25 13:51 Urine Appearance Clear (CLEAR) 02/23/25 13:51 Urine pH 5.0 (5-7) 02/23/25 13:51 Ur Specific [place] 1.014 (1.005-1.030) 02/23/25 13:51 Urine Protein Negative (Negative) 02/23/25 13:51 Urine Glucose (UA) Negative (Normal) 02/23/25 13:51 Urine Ketones Negative (Negative) 02/23/25 13:51 Urine Blood Negative (Negative) 02/23/25 13:51 Urine Nitrate Negative (Negative) 02/23/25 13:51 Urine Bilirubin Negative (Negative) 02/23/25 13:51 Urine Urobilinogen 0.2 mg/dL (Negative) 02/23/25 13:51 Ur Leukocyte Esterase Negative (Negative) 02/23/25 13:51 Urine RBC 0-2 /hpf (0-2) 02/23/25 13:51 Urine WBC 0-5 /hpf (0-5) 02/23/25 13:51 Ur Squamous Epith Cells 0-5 /hpf (0-5) 02/23/25 13:51 Amorphous Sediment Not Reportable 02/23/25 13:51 Urine Bacteria None seen /hpf (NONE) 02/23/25 13:51 Hyaline Casts 2.87 /lpf 02/23/25 13:51 All radiology interpretation(s) finalized by discharge Discharge Plan Discharge Patient Disposition: Home Clinical Impression: Leukocytosis Condition: Stable Prescriptions: No Action albuterol sulfate 90 mcg/actuation HFA aerosol inhaler 2 inh INHALATION Q4H PRN (Reason: shortness of breath or wheezing) Qty: 6.7 1RF cyclobenzaprine 10 mg Tablet 10 mg PO DAILY PRN (Reason: Spasms) cilostazol 100 mg Tablet 50 mg PO BID lisinopril 20 mg Tablet 20 mg PO QAM sildenafil [Viagra] 25 mg Tablet 25 mg PO DAILY PRN (Reason: Erectile Dysfunction) Rx Instructions: administer 30 minutes to 4 hours before activity amlodipine 10 mg Tablet 5 mg PO QAM naproxen [Naprosyn] 500 mg Tablet 500 mg PO BID pantoprazole [Protonix] 40 mg tablet,delayed release (DR/EC) 40 mg PO QAM Discharge Orders: Discharge ED (Routine); Ordered 02/23/25 Ordered By: Sarita Barboza Referrals: Susan Sullivan, [Primary Care Provider] - Discharge Diet: Usual diet Discharge Activity: Increase activity as tolerated Patient Instructions: Opioid Safety, Pain Management Activity Restrictions/Additional Instructions: Thank you for choosing [facility] for your healthcare needs today. You have been screened and evaluated and felt safe for discharge. Health conditions do change or evolve sometimes and as such it is important that you follow up with your Primary Doctor to be re checked, 3-5 days is a general good time frame for follow up. You are always welcome to return to the ED for re assessment if your symptoms are worsening or you have new concerns Print Language: Ukrainian Coding Level of Care Code ED Director Marketing Communications for [place]
[2025-02-23 14:02] LABS: Bilirubin Urine Negative (Negative); Blood Urine Negative (Negative); Glucose Urine UA Negative (Normal); Ketones Urine Negative (Negative); Leukocyte Esterase Urine Negative (Negative); Nitrate Urine Negative (Negative); Protein Urine Negative (Negative); Specific Gravity, Urine 1.014 (1.005-1.030); Urine Appearance Clear (CLEAR); Urine Color Yellow (Yellow); Urobilinogen Urine 0.2 mg/dL (Negative)
[2025-02-23 14:06] LABS: Bacteria Urine None Seen /hpf; Hyaline Casts Urine 2.87 /lpf; RBC Urine 0-2 /hpf (0-2); Squamous Epithelial Cell Urine 0-5 /hpf (0-5); WBC Urine 0-5 /hpf (0-5)
[2025-02-23 14:23] VITALS: BP 166/78; PULSE 82; O2SAT 96
== END 2025-02-23 14:25 | disposition home or self-care (01) ==
PROVIDERS: Emergency Provider Emergency Medicine; PCP Family Medicine
DX: D72.829 Elevated white blood cell count, unspecified (principal); I10 Essential (primary) hypertension
CPT/HCPCS: 36415; 71045; 80053; 81001; 83605; 85025; 86140; 99284

== ENCOUNTER 2025-03-16 11:26 | Outpatient (CLI) | payer OTHER, SELFPAY ==
--- NOTE | 2025-03-16 | ECG_ITS ---
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 The perfusion scan will be documented separately. DATA: Baseline heart rate was 70 beats per minute. Baseline blood pressure was 143/75 millimeters of mercury. Target heart rate was 153. Maximum heart rate achieved was 131. which was 85% of the predicted target heart rate. Maximum blood pressure was 147/79 millimeters of mercury. The reason for ending the test was completion of the protocol. The patient did not experience any symptoms. ELECTROCARDIOGRAM: BASELINE: Sinus rhythm. Left axis. Otherwise, no ST-T changes suggestive of ischemia noted. No arrhythmia noted. EXERCISE: After Lexiscan injection, frequent PACs were noted . no ST-T changes suggestive of ischemic noted. No arrhythmia noted. CONCLUSION: Please note due to baseline abnormality of the EKG specificity and sensitivity of the EKG portion of LexiScan MIBI stress test will be low 1. EKG not suggestive of ischemia 2. Lexiscan injection unremarkable. 3. Perfusion scan will be documented separately. Electronically Signed On 04-04-2025 22:36:50 CDT by ALISON CONNELLY [email or web address]
[2025-03-16 12:07] VITALS: BMI 27.1
--- NOTE | 2025-03-16 12:11 | USCV_ITS ---
Dobutamine Stress Echo Vikram Lawrence Age: 69 Gender: M : 1955 Exam Date: 03/16/2025 12:23 Ordering Phys: Hollis Duggan Technologist: Exam Location: [facility] [place] Indication: preop clearance Rhythm: Sinus Patient History: Cardiac Medications: Medications in past 24 hours: Contrast: Total Dose (mL): Stress Results Protocol: Pharmacologic Peak Dose (???g/kg/min): 82 Duration (min:sec): 16:51 Atropine:(mg) 0.5 Target HR: 130 Double Product: 85619 Resting HR: 73 Resting BP: 137 / 85 Peak HR: 131 Peak BP: 147 / 79 Max Predicted HR: 153 86 % Max Predicted HR Stress Summary: The hemodynamic response to stress was normal. The patient's target heart rate was achieved. BP Response: Normal Reason for Termination: The patients target heart rate was achieved Cardiac Symptoms: None ECG Analysis Resting EKG: Stress EKG: Arrhythmia: MEASUREMENTS (Male/Female) Normal Values FINDINGS Baseline echocardiogram: Normal left ventricle cavity, no wall motion abnormality normal left ventricle ejection fraction 60% Low dose dobutamine level: Good augmentation of the cavity no wall motion abnormality Peak dose dobutamine level: Augmentation of the cavity was good without any wall motion abnormality ejection fraction was hyperdynamic 70 to 75% Recovery: Uneventful no wall motion abnormality CONCLUSIONS Echocardiographic portion of the dobutamine stress echo was not suggestive of ischemia, EKG segment will be documented separately. Jonny Alfaro MD (Electronically Signed) Final Date: 19 Mar 2025 14:12 S
[2025-03-16] MEDS: DOBUTtamine 200 MG in sodium chloride 0.9% 34 ML 14 MG IV (12:34)
[2025-03-16] MEDS: atropine 0.1 mg/mL Syr 10 mL 0.5 MG IVP (12:51)
[2025-03-16] MEDS: metoprolol tartrate 1 mg/1 mL SDV 5 mL 5 MG IVP (12:55)
[2025-03-16 13:28] VITALS: BP 126/74; PULSE 82
== END 2025-03-16 11:27 | disposition home or self-care (01) ==
LOC: CDL 11:29
PROVIDERS: PCP Family Medicine; Visit Provider Physician Assistant Medical
DX: Z95.820 Peripheral vascular angioplasty status with implants and grafts (principal)
CPT/HCPCS: 36415; 93017; 93350; 93352; J0461; J1250; J3490; J7050

== ENCOUNTER 2025-07-18 09:57 | Outpatient (CLI) | payer OTHER, SELFPAY ==
--- NOTE | 2025-07-18 10:06 | USR_ITS ---
PROCEDURE INFORMATION: Exam: US Bilateral Noninvasive Physiologic Study of the Lower Extremity Arteries, Limited Exam date and time: 07/18/2025 10:05 AM Age: 70 years old Clinical indication: Pain; Leg, lower; Bilateral; Prior surgery; Surgery date: 1-6 months; Surgery type: Right iliac stent; Additional info: S/P R iliac stent placement with HX of evar TECHNIQUE: Imaging protocol: Bilateral Limited bilateral noninvasive physiologic studies of lower extremity arteries. Waveforms were obtained and evaluated. Images were documented and archived. Exam is limited. COMPARISON: CT angio abd aorta runof [id number] 01/11/2025 3:29 AM FINDINGS: Right Ankle-Brachial Index: Within normal range measuring 0.89-1.06. Left Ankle-Brachial Index: Within normal range measuring 0.99-1.01. US/CV ankle brachial index 35595 IMPRESSION: The bilateral lower extremity ankle-brachial indices are within normal range.
== END 2025-07-18 09:58 | disposition home or self-care (01) ==
LOC: RAD 09:58
PROVIDERS: PCP Family Medicine
DX: I73.9 Peripheral vascular disease, unspecified (principal)
CPT/HCPCS: 93922

== ENCOUNTER 2025-07-20 12:39 | Outpatient (CLI) | payer OTHER, SELFPAY ==
--- NOTE | 2025-07-20 12:44 | CTR_ITS ---
PROCEDURE INFORMATION: Exam: CTA Abdominal Aorta and Bilateral Lower Extremities (Run-off) With Contrast Exam date and time: 07/20/2025 1:19 PM Age: 70 years old Clinical indication: Condition or disease; Peripheral vascular disease; Prior surgery; Surgery date: 6+ months; S/P right iliac stent with HX of evar; Additional info: S/P R iliac stent with HX of evar TECHNIQUE: Imaging protocol: Computed tomographic angiography of the of the abdominal aorta, pelvis and bilateral lower extremities with contrast. 3D rendering (Not supervised by radiologist): MIP and/or 3D reconstructed images were created by the technologist. Radiation optimization: All CT scans at this facility use at least one of these dose optimization techniques: automated exposure control; mA and/or kV adjustment per patient size (includes targeted exams where dose is matched to clinical indication); or iterative reconstruction. Contrast material: OMNIPAQUE 350; Contrast volume: 125 ml; Contrast route: INTRAVENOUS (IV); COMPARISON: CT angio abd aorta runof [id number] 01/11/2025 3:29 AM RADIATION DOSE METRICS: Total DLP (mGy-cm): 1642.13 FINDINGS: Aorta: Patent EVAR without endoleak.. Celiac and mesenteric arteries: Proximal occlusion (postprocedure) of the CINTHIA with distal reconstitution. Renal arteries: Bilateral accessory renal arteries, no stenosis. Right iliac arteries: Proximal right external iliac artery stent, patent, without stenosis. Calcified and noncalcified plaque proximal right internal iliac artery, with intraluminal filling defect (series 6, images 278-279). Severe stenosis proximal posterior division right internal iliac artery. Proximal short segment occlusion of the right internal iliac anterior division with distal reconstitution. Right femoral/popliteal arteries: Less than 50% stenosis right common femoral artery. Moderate stenosis right superficial femoral artery (adductor hiatus). Right infrapopliteal arteries: Less than 50% stenosis right tibioperoneal trunk. Moderate stenosis proximal right anterior tibial artery (interosseous membrane). Severe stenoses proximal and mid right anterior tibial artery (anterior compartment). Less than 50% stenosis proximal right posterior tibial artery. Three-vessel runoff to the right ankle. The right peroneal artery supplies the hindfoot. The right posterior tibial artery supplies the forefoot. Less than 50% stenosis proximal right posterior tibial artery. The right posterior tibial artery supplies the forefoot. The right anterior tibial/dorsalis pedis artery supplies the right forefoot. Left iliac arteries: Moderate-severe stenosis left common iliac artery. Severe stenosis proximal and mid left internal iliac anterior division. Left femoral/popliteal arteries: Severe stenosis distal left superficial femoral artery (adductor hiatus). Left infrapopliteal arteries: Moderate stenosis proximal left posterior tibial artery. Moderate stenoses left tibioperoneal trunk. Severe stenoses proximal left anterior tibial artery (anterior compartment). The left anterior tibial artery appears occluded at the level of the ankle, including delayed images. Two-vessel runoff at the left ankle. Lungs: Right lower lobe calcified pulmonary parenchymal granuloma. Heart: Mild aortic valvular calcification is present. Mitral annular calcification is present. Liver: Small hepatic calcified granuloma. Gallbladder and biliary ducts: Contracted gallbladder. Pancreas: Unremarkable. No mass. No ductal dilation. Spleen: The spleen demonstrates a few small granulomatous calcifications. No splenomegaly. Adrenal glands: Normal. No mass. Kidneys and ureters: Left renal calculi (3), the largest in the anterior mid kidney 3.4 mm. No hydronephrosis/obstructive uropathy. Right renal 6.2 mm benign cyst. Stomach and bowel: Sigmoid colonic diverticula are present without evidence of diverticulitis. Appendix: The vermiform appendix is not identified on this examination. There is, however, no pericecal abnormality to suggest appendicitis. Urinary bladder: Unremarkable. No mass. Reproductive: The prostate gland is mildly enlarged measuring 4.8 cm transverse dimension, with nonspecific parenchymal calcifications. Intraperitoneal space: Unremarkable. No free air. No significant fluid collection. Lymph nodes: No lymphadenopathy. Bones/joints: Severe right L4-L5 and L5-S1 neural foraminal narrowing. There is degenerative disc disease at multiple lumbar spine disk levels. Mild L2-L3 retrolisthesis, moderate spondylosis. Moderate L1-L2 spondylosis. Healed left inferior and superior pubic ramus fractures. Healed lateral left sacral ala fracture. L5-S1 spondylosis with bilateral neural foraminal stenosis. Focal gas containing cyst lateral left L5 neural foramen, likely degenerative arising from the facet joint. Lumbar spine vertebral body marginal osteophytes are noted at multiple levels. Soft tissues: Unremarkable. CT/CT angio abd aorta runof [id number] IMPRESSION: 1. Patent EVAR without endoleak.. 2. Proximal right external iliac artery stent, patent, without stenosis. 3. Moderate stenosis right superficial femoral artery (adductor hiatus). 4. Moderate stenosis proximal right anterior tibial artery (interosseous membrane). 5. Severe stenoses proximal and mid right anterior tibial artery (anterior compartment). 6. Calcified and noncalcified plaque proximal right internal iliac artery, with intraluminal filling defect suggestive of thrombus. 7. Severe stenosis proximal posterior division right internal iliac artery. 8. Proximal short segment occlusion of the right internal iliac anterior division with distal reconstitution. 9. Moderate-severe stenosis left common iliac artery. 10. Severe stenosis distal left superficial femoral artery (adductor hiatus). 11. Moderate stenosis proximal left posterior tibial artery. 12. Moderate stenoses left tibioperoneal trunk. 13. Severe stenoses proximal left anterior tibial artery (anterior compartment). 14. The left anterior tibial artery appears occluded at the level of the ankle, including delayed images. 15. Severe stenosis proximal and mid left internal iliac anterior division. 16. Left renal calyceal lithiasis. 17. Right renal small benign cyst. No follow-up imaging is recommended. 18. Diverticulosis. 19. Mild prostatic hypertrophy with chronic calcific prostatitis.
[2025-07-20] MEDS: iohexol 350 mg/mL 500 mL Btl (per mL) IV (13:31)
== END 2025-07-20 12:40 | disposition home or self-care (01) ==
LOC: RAD 12:39
PROVIDERS: PCP Family Medicine
DX: Z95.820 Peripheral vascular angioplasty status with implants and grafts (principal); I70.201 Unspecified atherosclerosis of native arteries of extremities, right leg; I70.92 Chronic total occlusion of artery of the extremities; I77.1 Stricture of artery; I70.8 Atherosclerosis of other arteries; I74.5 Embolism and thrombosis of iliac artery; I70.292 Other atherosclerosis of native arteries of extremities, left leg; N20.0 Calculus of kidney; N28.1 Cyst of kidney, acquired; K57.90 Diverticulosis of intestine, part unspecified, without perforation or abscess without bleeding; N41.1 Chronic prostatitis; N40.0 Benign prostatic hyperplasia without lower urinary tract symptoms
CPT/HCPCS: 75635